=== PATIENT | female | born 1980 | race African-American/Black ===

== ENCOUNTER 2017-06-27 11:45 | Inpatient (IN) | payer OTHER ==
[2017-07-14] MEDS ORDERED: Sodium Chloride 0.9% 10 ML Syringe FLUSH PRN (00:01)
[2017-07-14] MEDS ORDERED: Lactated Ringers 1,000 ML IV SCH (00:01)
[2017-07-14] MEDS ORDERED: Lidocaine 1%/Sod Bicarbonate in NS 8.4% 1 ML Syringe IV PRN (00:01)
[2017-07-14] MEDS ORDERED: Iodine/Sodium Iodide 2% Tincture 30 ML Bottle ONE (06:19)
[2017-07-14] MEDS ORDERED: ceFAZolin 1 GM Vial ONE ×2 (06:19→06:34)
[2017-07-14] MEDS ORDERED: Morphine PF 1 MG/ML Amp ONE (06:21)
[2017-07-14] MEDS ORDERED: Midazolam 1 MG/ML 2 ML SDV ONE (06:30)
[2017-07-14] MEDS ORDERED: Propofol 200 MG/20 ML SDV ONE ×2 (06:30→09:02)
[2017-07-14] MEDS ORDERED: fentaNYL 100 MCG/2 ML SDV ONE (06:30)
[2017-07-14] MEDS ORDERED: Cyclobenzaprine 10 MG Tab PO PRN (06:36)
[2017-07-14] MEDS ORDERED: Magnesium Hydroxide 400 MG/5 ML Susp 30 ML Cup PO PRN (06:42)
[2017-07-14] MEDS ORDERED: Naloxone 0.4 MG/ML SDV IVPUSH PRN (06:42)
[2017-07-14] MEDS ORDERED: Ondansetron 4 MG/2 ML SDV IVPUSH PRN ×2 (06:42→09:40)
[2017-07-14] MEDS ORDERED: Bisacodyl 5 MG Tab PO PRN (06:42)
[2017-07-14] MEDS ORDERED: diphenhydrAMINE 50 MG/ML SDV IVPUSH PRN ×3 (06:42→20:09)
[2017-07-14] MEDS ORDERED: Sennosides 8.6 MG Tab PO PRN (06:42)
[2017-07-14] MEDS ORDERED: Morphine 2 MG/ML Syringe IVPUSH PRN (06:42)
--- NOTE | 2017-07-14 06:43 | PCM.PREANE ---
Preanesthetic Assessment - Procedure Proposed Procedure: Left TKR - Anesthesia/Transfusion/Family Hx Anesthesia History: Prior Anesthesia Reaction Type of Anesthesia Reaction: Excessive Nausea/Vomiting Family History of Anesthesia Reaction: No Transfusion History: No Prior Transfusion(s) - Review of Systems General: No Symptoms Pulmonary: No Symptoms, Other (MARTÍN with CPAP) Cardiovascular: No Symptoms Gastrointestinal: Other (GERD) Neurological: No Symptoms Other: Reports: Diabetes (insulin pump left upper arm ), Depression - Physical Assessment NPO Status Date: 07/13/17 NPO Status Time: 21:00 ASA Class: 2 Mental Status: Alert & Oriented x3 Dentition: Reports: Normal Dentition Thyro-Mental Finger Breadths: 3 Mouth Opening Finger Breadths: 3 ROM/Head Extension: Full Lungs: Clear to Auscultation, Normal Respiratory Effort Cardiovascular: Regular Rate, Regular Rhythm - Lab Values: Laboratory Last Values POC Glucose 78 mg/dL (70-105) 07/14/17 06:29 Urine HCG, Qual Negative (NEGATIVE) 07/14/17 06:14 MRSA (PCR) Negative 06/17/17 10:04 - Allergies Allergies/Adverse Reactions: Allergies Allergy/AdvReac Type Severity Reaction Status Date / Time amoxicillin Allergy Facial Verified 07/13/17 13:12 Swelling cat dander Allergy Cannot Verified 07/13/17 13:12 Remember metformin Allergy Cannot Verified 07/13/17 13:12 Remember Penicillins Allergy Cannot Verified 07/13/17 13:12 Remember shellfish derived Allergy Swelling Verified 07/13/17 13:12 metal Allergy Cannot Uncoded 07/13/17 13:12 Remember - Blood Blood Available: No Product(s) Available: None - Anesthesia Plan Pre-Op Medication Ordered: None - Acknowledgements Anesthesia Type Planned: Spinal (with duramorph) Pt an Appropriate Candidate for the Planned Anesthesia: Yes Alternatives and Risks of Anesthesia Discussed w Pt/Guardian: Yes Pt/Guardian Understands and Agrees with Anesthesia Plan: Yes PreAnesthesia Questionnaire HEENT History: Reports: Impaired Vision Other HEENT History: WEARS GLASSES Cardiovascular History: Reports: Other (See Below) Other Cardiovascular History: TACHYCARDIA Respiratory History: Reports: Asthma, Sleep Apnea Other Respiratory History: REACTIVE AIRWAY DISEASE Gastrointestinal History: Reports: GERD, Helicobacter Pylori Other Gastrointestinal History: HX OF H.PYLORI INFECTION Genitourinary History: Reports: Other (See Below) Other Genitourinary History: menorrhaiga, labial cyst Other OB/BYN History: HERPES SIMPLEX VIRUS, LABIAL CYST Musculoskeletal History: Reports: Fibromyalgia, Osteoarthritis Other Musculoskeletal History: leg pain, left ankle pain, left knee pain Neurological History: Reports: Migraines Psychiatric History: Reports: Anxiety, Depression Other Psychiatric History: INSOMNIA, fatigue Endocrine/Metabolic History: Reports: Diabetes, Type I, Obesity/BMI 30+, Other ( See Below) Other Endocrine/Metabolic History: vitamin b 12 deficiency Hematologic History: Reports: Other (See Below) Other Hematologic History: elevated CRP Immunologic History: Reports: None Oncologic (Cancer) History: Reports: None Other Dermatologic History: herpes simplex virus, skin tags, cyst excision from tailbone - Past Surgical History Cardiovascular Surgical History: Reports: None Respiratory Surgical History: Reports: None GI Surgical History: Reports: Bariatric Procedure, EGD, Other (See Below) Other GI Surgeries/Procedures: gastric bypass sleeve procedure Female Surgical History: Reports: None Male Surgical History: Reports: None Endocrine Surgical History: Reports: None Neurological Surgical History: Reports: None Musculoskeletal Surgical History: Reports: Other (See Below) Other Musculoskeletal Surgeries/Procedures:: BILATERAL CARPAL TUNNEL RELEASES, HX OF CYST EXCISION FROM TAILBONE, right foot hammertoe correction, trigger finger release on left Oncologic Surgical History: Reports: None - SUBSTANCE USE Smoking Status *Q: Never Smoker Second Hand Smoke Exposure: No Days Per Week of Alcohol Use: 0 Recreational Drug Use History: No - HOME MEDS Home Medications: Home Meds Albuterol Sulfate [Albuterol Sulfate HFA] 2 puff INH Q4H PRN 01/23/15 [History] Cyanocobalamin (Vitamin B-12) [B-12] 1,000 mcg PO DAILY PRN 01/23/15 [History] DULoxetine [Cymbalta] 60 mg PO DAILY 01/23/15 [History] Fluticasone/Salmeterol [Advair 100-50] 1 puff INH BID PRN 01/23/15 [History] Insulin Aspart [NovoLOG] 1 dose SQ ASDIRECTED PRN 01/23/15 [History] Omeprazole 40 mg PO DAILY 01/23/15 [History] medroxyPROGESTERone Acetate [Depo-Provera] 1 dose IM ASDIRECTED 01/23/15 [ History] valACYclovir HCl [Valtrex] 500 mg PO DAILY PRN 01/23/15 [History] Azelastine/Fluticasone [Dymista Nasal [place]] 1 spray NASBOTH DAILY PRN 07/13/17 [History] Calcium Carbonate [Calcium] 600 mg PO DAILY 07/13/17 [History] EPINEPHrine [Epipen] 1 dose IM ONETIME PRN 07/13/17 [History] Insulin Glargine,Hum.Rec.Anlog [Lantus Solostar] 33 units SQ BEDTIME PRN [History] LORazepam [Ativan] 1 mg PO TID PRN 07/13/17 [History] Multivitamin [Poly-Vitamin] 1 tab PO DAILY 07/13/17 [History] Temazepam 30 mg PO BEDTIME PRN 07/13/17 [History] buPROPion HCl [Wellbutrin Xl] 300 mg PO DAILY 07/13/17 [History] - CURRENT (IN HOUSE) MEDS Current Meds: Current Medications Lactated Ringer's (Ringers, Lactated) 1,000 mls @ 125 mls/hr IV ASDIRECTED MARISELA Lidocaine/Sodium Bicarbonate (Buffered Lidocaine 1% In Ns 8.4%) 0.25 ml IV ONETIME PRN PRN Reason: Prior to IV Start Sodium Chloride (Saline Flush) 10 ml FLUSH ASDIRECTED PRN PRN Reason: Keep Vein Open Discontinued Medications Bupivacaine HCl (Marcaine 0.25%) Confirm Administered Dose 30 ml .ROUTE .STK- MED ONE Stop: 07/14/17 06:20 Cefazolin Sodium (Ancef) Confirm Administered Dose 2 gm .ROUTE .STK-MED ONE Stop: 07/14/17 06:35 Cefazolin Sodium (Ancef) Confirm Administered Dose 2 gm .ROUTE .STK-MED ONE Stop: 07/14/17 06:20 Fentanyl (Sublimaze) Confirm Administered Dose 100 mcg .ROUTE .STK-MED ONE Stop: 07/14/17 06:31 Iodine (Iodine 2% Mild Tincture) Confirm Administered Dose 30 ml .ROUTE .STK- MED ONE Stop: 07/14/17 06:20 Midazolam HCl (Versed 1 Mg/Ml) Confirm Administered Dose 2 mg .ROUTE .STK-MED ONE Stop: 07/14/17 06:31 Morphine Sulfate (Duramorph Pf) Confirm Administered Dose 1 mg .ROUTE .STK-MED ONE Stop: 07/14/17 06:22 Propofol (Diprivan 20 Ml) Confirm Administered Dose 600 mg .ROUTE .STK-MED ONE Stop: 07/14/17 06:31 Tranexamic Acid (Cyklokapron) Confirm Administered Dose 1,000 mg .ROUTE .STK- MED ONE Stop: 07/14/17 06:20 Vancomycin HCl (Vancomycin) Confirm Administered Dose 1 gm .ROUTE .STK-MED ONE Stop: 07/14/17 06:20
[2017-07-14] MEDS ORDERED: Clindamycin Phosphate 900 MG in Sodium Chloride 0.9% 100 ML IV SCH (07:00)
[2017-07-14] MEDS ORDERED: Lactated Ringers 1,000 ML ONE (07:54)
[2017-07-14] MEDS: Bupivacaine 0.25% 30 ML SDV ONE ×2 (08:12→08:48)
[2017-07-14] MEDS: Clindamycin Phosphate 900 MG/6 ML AdvVial ONE ×2 (08:12→08:44)
[2017-07-14] MEDS: Morphine 8 MG, EPINEPHrine 0.3 MG, Ketorolac 30 MG, Sodium Chloride 0.9% 27.9 ML ONE ×8 (08:13→08:48)
[2017-07-14] MEDS: Vancomycin 1 GM SDV ONE ×2 (08:13→08:53)
[2017-07-14] MEDS ORDERED: Meperidine PF 50 MG/ML Syringe IVPUSH PRN (09:40)
[2017-07-14] MEDS ORDERED: fentaNYL 100 MCG/2 ML SDV IVPUSH PRN (09:40)
--- NOTE | 2017-07-14 09:42 | PCM.POSTAN ---
POST ANESTHESIA ASSESSMENT - MENTAL STATUS Mental Status: Alert, Oriented - VITAL SIGNS Pulse Rate: 83 SaO2: 100 Resp Rate: 16 Blood Pressure: 113/68 Temperature: 36.9 C - RESPIRATORY Respiratory Status: Respiratory Rate WNL, Airway Patent, O2 Saturation Stable, Supplemental Oxygen - CARDIOVASCULAR CV Status: Pulse Rate WNL, Blood Pressure Stable - GASTROINTESTINAL GI Status: No Symptoms - PAIN Pain Score: 0 - POST OP HYDRATION Hydration Status: Adequate & Stable
[2017-07-14] MEDS ORDERED: Albuterol 6.7 GM Inhaler INH PRN (11:08)
[2017-07-14] MEDS ORDERED: Azelastine/Fluticasone [Dymista Nasal Spray] NASBOTH PRN (11:08)
[2017-07-14] MEDS ORDERED: Cyanocobalamin (Vitamin B12) 1,000 MCG Tab PO PRN (11:08)
[2017-07-14] MEDS ORDERED: valACYclovir 500 MG Tab PO PRN (11:08)
[2017-07-14] MEDS ORDERED: [UNRECOGNIZED DRUG - SUPPLY] PRN (11:08)
[2017-07-14] MEDS ORDERED: Formoterol/Mometasone 100-5 MCG 8.8 GM Inhaler IH PRN (11:08)
[2017-07-14] MEDS ORDERED: LORazepam 1 MG Tab PO PRN (11:08)
[2017-07-14] MEDS ORDERED: EPINEPHrine 0.3 MG/0.3 ML Pen Autoinjector IM PRN (11:08)
--- NOTE | 2017-07-14 11:14 | CR ---
Left knee: AP and lateral views of the left knee were obtained. Comparison: No prior knee exam. Knee prosthesis is seen. Components are aligned. Soft tissue air is seen compatible with the surgical procedure. Underlying bony structures are intact. Impression: 1. Satisfactory radiographic appearance of recently placed left knee prosthesis. Diagnostic code #2
[2017-07-14] MEDS ORDERED: medroxyPROGESTERone 150 MG/ML SDV IM SCH (11:15)
[2017-07-14] MEDS: Clindamycin Phosphate 600 MG in Sodium Chloride 0.9% 100 ML IV SCH ×2 (12:51→19:53)
--- NOTE | 2017-07-14 16:29 | PCM.CONS ---
H&P History of Present Illness - General Date of Service: 07/14/17 Admit Problem/Dx: Admission Diagnosis/Problem Admission Diagnosis/Problem Osteoarthritis of knee Source of Information: Patient, Old Records, RN Notes Reviewed, Other (urgical notes) History Limitations: Reports: No Limitations - History of Present Illness Initial Comments - Free Text/Narative: Jeimy Mcgee is a 36 [address] patient of Dr. Hernandes who is post-operative day 0 of left TKR. Hospital medicine was consulted for post-operative medical care. At this time she is resting comfortably in bed. Pain is controlled. She denies any chest pain, shortness of breath, palpitations, nausea, or vomiting. She carries a history of: Tachycardia, astham, sleep apnea on CPAP, reactive airway disease , GERD, fibromyalgia, osteoarthritis, migraines, anxiety, depression, insomnia, type I DM, Obesity, vitamin B12 Deficiency, herpes symplex virus, and hx/o gastric bypass sleeve. She was never a smoker She is a full code. Her primary care provider is Fifi Weldon, Nurse Practitioner at [facility] in [place]. Left Knee Pain Score (Numeric/FACES): 2 - Related Data Allergies/Adverse Reactions: Allergies Allergy/AdvReac Type Severity Reaction Status Date / Time amoxicillin Allergy Facial Verified 07/13/17 13:12 Swelling cat dander Allergy Cannot Verified 07/13/17 13:12 Remember metformin Allergy Cannot Verified 07/13/17 13:12 Remember Penicillins Allergy Cannot Verified 07/13/17 13:12 Remember shellfish derived Allergy Swelling Verified 07/13/17 13:12 metal Allergy Cannot Uncoded 07/13/17 13:12 Remember Home Medications: Home Meds Albuterol Sulfate [Albuterol Sulfate HFA] 2 puff INH Q4H PRN 01/23/15 [History] Cyanocobalamin (Vitamin B-12) [B-12] 1,000 mcg PO DAILY PRN 01/23/15 [History] DULoxetine [Cymbalta] 60 mg PO DAILY 01/23/15 [History] Fluticasone/Salmeterol [Advair 100-50] 1 puff INH BID PRN 01/23/15 [History] Insulin Aspart [NovoLOG] 1 dose SQ ASDIRECTED PRN 01/23/15 [History] Omeprazole 40 mg PO DAILY 01/23/15 [History] medroxyPROGESTERone Acetate [Depo-Provera] 1 dose IM ASDIRECTED 01/23/15 [ History] valACYclovir HCl [Valtrex] 500 mg PO DAILY PRN 01/23/15 [History] Azelastine/Fluticasone [Dymista Nasal [place]] 1 spray NASBOTH DAILY PRN 07/13/17 [History] Calcium Carbonate [Calcium] 600 mg PO DAILY 07/13/17 [History] EPINEPHrine [Epipen] 1 dose IM ONETIME PRN 07/13/17 [History] Insulin Glargine,Hum.Rec.Anlog [Lantus Solostar] 33 units SQ BEDTIME PRN [History] LORazepam [Ativan] 1 mg PO TID PRN 07/13/17 [History] Multivitamin [Poly-Vitamin] 1 tab PO DAILY 07/13/17 [History] Temazepam 30 mg PO BEDTIME PRN 07/13/17 [History] buPROPion HCl [Wellbutrin Xl] 300 mg PO DAILY 07/13/17 [History] Past Medical History HEENT History: Reports: Impaired Vision Other HEENT History: WEARS GLASSES Cardiovascular History: Reports: Other (See Below) Other Cardiovascular History: TACHYCARDIA Respiratory History: Reports: Asthma, Sleep Apnea Other Respiratory History: REACTIVE AIRWAY DISEASE Gastrointestinal History: Reports: GERD, Helicobacter Pylori Other Gastrointestinal History: HX OF H.PYLORI INFECTION Genitourinary History: Reports: Other (See Below) Other Genitourinary History: menorrhaiga, labial cyst Other OB/BYN History: HERPES SIMPLEX VIRUS, LABIAL CYST Musculoskeletal History: Reports: Fibromyalgia, Osteoarthritis Other Musculoskeletal History: leg pain, left ankle pain, left knee pain Neurological History: Reports: Migraines Psychiatric History: Reports: Anxiety, Depression Other Psychiatric History: INSOMNIA, fatigue Endocrine/Metabolic History: Reports: Diabetes, Type I, Obesity/BMI 30+, Other ( See Below) Other Endocrine/Metabolic History: vitamin b 12 deficiency Hematologic History: Reports: Other (See Below) Other Hematologic History: elevated CRP Immunologic History: Reports: None Oncologic (Cancer) History: Reports: None Other Dermatologic History: herpes simplex virus, skin tags, cyst excision from tailbone - Infectious Disease History Infectious Disease History: Reports: Herpes - Past Surgical History HEENT Surgical History: Reports: None Cardiovascular Surgical History: Reports: None Respiratory Surgical History: Reports: None GI Surgical History: Reports: Bariatric Procedure, EGD, Other (See Below) Other GI Surgeries/Procedures: gastric bypass sleeve procedure Female Surgical History: Reports: None Endocrine Surgical History: Reports: None Neurological Surgical History: Reports: None Musculoskeletal Surgical History: Reports: Other (See Below) Other Musculoskeletal Surgeries/Procedures:: BILATERAL CARPAL TUNNEL RELEASES, HX OF CYST EXCISION FROM TAILBONE, right foot hammertoe correction, trigger finger release on left Oncologic Surgical History: Reports: None Social & Family History - Tobacco Use Smoking Status *Q: Never Smoker Second Hand Smoke Exposure: No - Caffeine Use Caffeine Use: Reports: Coffee, Tea - Alcohol Use Days Per Week of Alcohol Use: 0 - Recreational Drug Use Recreational Drug Use: No Drug Use in Last 12 Months: No H&P Review of Systems - Review of Systems: Review Of Systems: See Below General: Reports: No Symptoms. Denies: Fever, Chills, Malaise, Weakness, Fatigue HEENT: Reports: No Symptoms. Denies: Ear Pain, Eye Pain, Headaches, Sore Throat , Visual Changes Pulmonary: Reports: No Symptoms. Denies: Shortness of Breath, Wheezing, Pleuritic Chest Pain, Cough, Sputum Cardiovascular: Reports: No Symptoms. Denies: Chest Pain, Palpitations, Dyspnea on Exertion, Edema, Lightheadedness Gastrointestinal: Reports: No Symptoms. Denies: Abdominal Pain, Constipation, Diarrhea, Nausea, Vomiting Genitourinary: Reports: No Symptoms. Denies: Dysuria, Frequency, Burning, Pain , Urgency Musculoskeletal: Reports: Joint Pain (left knee pain - very mild ) Skin: Reports: No Symptoms Psychiatric: Reports: No Symptoms Neurological: Reports: Numbness (legs ), Tingling (legs ). Denies: Confusion, Dizziness, Headache, Paresthesia, Pre-Existing Deficit, Syncope, Tremors, Trouble Speaking, Weakness Hematologic/Lymphatic: Reports: No Symptoms Immunologic: Reports: No Symptoms Exam - Exam Exam: See Below - Vital Signs Vital Signs: Last Vital Signs Temp 97.5 F 07/14/17 10:45 Pulse 80 07/14/17 14:36 Resp 16 07/14/17 14:36 BP 126/78 07/14/17 13:00 Pulse Ox 100 07/14/17 14:39 Weight: 211 lb - Exam Quality Assessment: Urinary Catheter, DVT Prophylaxis General: Alert, Oriented, Cooperative HEENT: Conjunctiva Clear, EACs Clear, EOMI, Hearing Intact, Mucosa Moist & [place] , Nares Patent, Normal Nasal Septum, Posterior Pharynx Clear, PERRLA Neck: Supple, Trachea Midline. No: JVD, Thyromegaly Lungs: Clear to Auscultation, Normal Respiratory Effort Cardiovascular: Regular Rate, Regular Rhythm GI/Abdominal Exam: Normal Bowel Sounds, Soft, Non-Tender, No Organomegaly, No Distention, No Abnormal Bruit, No Mass, Pelvis Stable (Female) Exam: Deferred Rectal (Female) Exam: Deferred Back Exam: Normal Inspection, Full Range of Motion Extremities: No Pedal Edema, Normal Capillary Refill, Other (CHARIS bandage in place on left leg. Bandage is dry and intact. Polar care in place. ) Peripheral Pulses: 2+: Radial (L), Radial (R), Posterior Tibial (L), Posterior Tibial (R), Dorsalis Pedis (L), Dorsalis Pedis (R) Skin: Warm, Dry, Intact Neurological: Cranial Nerves Intact (grossly) Neuro Extensive - Mental Status: Alert, Oriented x3, Normal Mood/Affect, Normal Cognition Neuro Extensive - Motor, Sensory, Reflexes: CN II-XII Intact (grossly) Psychiatric: Alert, Normal Affect, Normal Mood - Patient Data Lab Results Last 24 hrs: Laboratory Results - last 24 hr 07/14/17 07/14/17 07/14/17 Range/Units 06:14 06:29 09:36 POC Glucose 78 74 (70-105) mg/dL Urine HCG, Qual Negative (NEGATIVE) Consult PN Assessment/Plan POD#: 0 Procedures: Procedures ASSAY OF MAGNESIUM (06/01/15) ASSAY OF PHOSPHORUS (06/01/15) ASSAY OF TROPONIN QUANT (06/01/15) CHEST X-RAY 1 VIEW FRONTAL (06/01/15) COMPLETE CBC W/AUTO DIFF WBC (06/01/15) COMPREHEN METABOLIC PANEL (06/01/15) ELECTROCARDIOGRAM TRACING (06/01/15) EMERGENCY DEPT VISIT (06/01/15) GLUCOSE BLOOD TEST (01/24/15) REPAIR OF HAMMERTOE (01/24/15) ROUTINE VENIPUNCTURE (06/01/15) URINE TEST (01/24/15) (1) S/P total knee replacement SNOMED Code(s): 9293049846721, 4211923344912 Code(s): Z96.659 - PRESENCE OF UNSPECIFIED ARTIFICIAL KNEE JOINT Priority: High Current Visit: Yes Qualifiers: Laterality: left Qualified Code(s): Z96.652 - Presence of left artificial knee joint (2) Osteoarthritis SNOMED Code(s): 505528630 Code(s): M19.90 - UNSPECIFIED OSTEOARTHRITIS, UNSPECIFIED SITE Priority: High Current Visit: Yes Qualifiers: Osteoarthritis location: knee Osteoarthritis type: primary Laterality: bilateral Qualified Code(s): M17.0 - Bilateral primary osteoarthritis of knee (3) Type I diabetes mellitus SNOMED Code(s): 79810152 Code(s): E10.9 - TYPE 1 DIABETES MELLITUS WITHOUT COMPLICATIONS Priority: High Current Visit: Yes Qualifiers: Diabetes mellitus complication status: without complication Qualified Code( s): E10.9 - Type 1 diabetes mellitus without complications (4) MARTÍN (obstructive sleep apnea) SNOMED Code(s): 85374649 Code(s): G47.33 - OBSTRUCTIVE SLEEP APNEA (ADULT) (PEDIATRIC) Priority: Medium Current Visit: Yes (5) Asthma SNOMED Code(s): 967721426 Code(s): J45.909 - UNSPECIFIED ASTHMA, UNCOMPLICATED Priority: Medium Current Visit: No Qualifiers: Asthma severity: unspecified severity Asthma persistence: unspecified Asthma complication type: unspecified Qualified Code(s): J45.909 - Unspecified asthma, uncomplicated (6) Tachycardia SNOMED Code(s): 9557118 Code(s): R00.0 - TACHYCARDIA, UNSPECIFIED Priority: Medium Current Visit : No (7) Fibromyalgia SNOMED Code(s): 014459527 Code(s): M79.7 - FIBROMYALGIA Priority: Low Current Visit: No (8) Anxiety and depression SNOMED Code(s): 681293077 Code(s): F41.8 - OTHER SPECIFIED ANXIETY DISORDERS Priority: Low Current Visit: No (9) History of gastric bypass SNOMED Code(s): 290717254 Code(s): Z98.84 - BARIATRIC SURGERY STATUS Priority: Low Current Visit: Yes (10) B12 deficiency SNOMED Code(s): 685764372 Code(s): E53.8 - DEFICIENCY OF OTHER SPECIFIED B GROUP VITAMINS Priority: Low Current Visit: No (11) Insomnia SNOMED Code(s): 973040441 Code(s): G47.00 - INSOMNIA, UNSPECIFIED Priority: Low Current Visit: No Qualifiers: Insomnia type: unspecified Qualified Code(s): G47.00 - Insomnia, unspecified (12) Gastroesophageal reflux disease SNOMED Code(s): 817404427 Code(s): K21.9 - GASTRO-ESOPHAGEAL REFLUX DISEASE WITHOUT ESOPHAGITIS Priority: Low Current Visit: No Qualifiers: Esophagitis presence: esophagitis presence not specified Qualified Code(s) : K21.9 - Gastro-esophageal reflux disease without esophagitis (13) Hypertension SNOMED Code(s): 41443630 Code(s): I10 - ESSENTIAL (PRIMARY) HYPERTENSION Priority: Low Current Visit: No Qualifiers: Hypertension type: essential hypertension Qualified Code(s): I10 - Essential (primary) hypertension Problem List Initiated/Reviewed/Updated: Yes Plan: I/P: Acute: S/P left total knee replacement - post-operative day 0 -DVT prophylaxis and pain management per primary care team -PT/OT -IS/RT -Monitor oxygen saturation -Titrate oxygen as needed -Vital signs stable -Monitor post-operative labs Osteoarthritis of bilateral knees -Pain management per primary care team Chronic: MARTÍN - CPAP GERD Type I DM - Blood sugar checks as ordered; on insulin pump Tacycardia - stable reactive airway disease - stable asthma herpes simplex virus fibromyalgia - stable migraines anxiety - stable depression - stable insomnia obesity vitamin B 12 deficiency Hx/o gastric bypass sleeve Plan: SW/CM for discharge planning GI prophylaxis Home medications as indicated Other orders as listed above Routine AM labs She is a full code. Her PCP is Fifi Weldon, Nurse practitioner at in [place]. Thank you for allowing us to participate in the care of this patient!! Requesting Provider: Dr. Hernandes Date Consult Requested: 07/14/17 Reason for Consult: Post-operative medical managment Patient History Reviewed: Yes Admission H&P Reviewed: Yes
[2017-07-14] MEDS ORDERED: 50% Dextrose in Water 50 ML Syringe IVPUSH PRN (18:59)
[2017-07-14] MEDS: Docusate Sodium 100 MG Cap PO SCH (20:29)
[2017-07-14] MEDS ORDERED: Famotidine 20 MG Tab PO SCH (21:00)
[2017-07-14] MEDS ORDERED: Insulin Detemir 100 Units/ML 3 ML Pen SUBCUT PRN (21:00)
[2017-07-14] MEDS ORDERED: Temazepam 30 MG Cap PO PRN (21:00)
[2017-07-15] MEDS: Clindamycin Phosphate 600 MG in Sodium Chloride 0.9% 100 ML IV SCH ×3 (01:08→12:54)
[2017-07-15] MEDS: Acetaminophen/oxyCODONE 325-5 MG Tab PO PRN ×3 (01:15→14:21)
[2017-07-15] MEDS: Ketorolac 15 MG/ML SDV IVPUSH PRN ×2 (04:14→11:14)
[2017-07-15] MEDS ORDERED: Pantoprazole 40 MG Tab.CR PO SCH (07:00)
--- NOTE | 2017-07-15 08:24 | PCM.CONSN ---
- General Info Date of Service: 07/15/17 Admission Dx/Problem (Free Text): Admission Diagnosis/Problem Admission Diagnosis/Problem Osteoarthritis of knee POD #[address] Hernandes. Doing well. Pain controlled, no nausea. Working with PT/OT. Functional Status: Reports: Pain Controlled, Tolerating Diet, Ambulating, Urinating, Incentive Spirometry. Denies: New Symptoms - Review of Systems General: Reports: No Symptoms HEENT: Reports: No Symptoms Pulmonary: Reports: No Symptoms Cardiovascular: Reports: No Symptoms Gastrointestinal: Reports: No Symptoms Genitourinary: Reports: No Symptoms Musculoskeletal: Reports: Leg Pain Skin: Reports: No Symptoms Neurological: Reports: No Symptoms Psychiatric: Reports: No Symptoms - Patient Data Vitals - Most Recent: Last Vital Signs Temp 98.2 F 07/15/17 03:13 Pulse 86 07/15/17 03:13 Resp 16 07/15/17 03:13 BP 117/75 07/15/17 03:13 Pulse Ox 97 07/15/17 03:13 Weight - Most Recent: 207 lb 14.4 oz I&O - Last 24 Hours: Intake & Output 07/14/17 07/15/17 07/15/17 22:59 06:59 14:59 Intake Total 1160 650 Output Total 350 Balance 810 650 Lab Results Last 24 Hours: Laboratory Results - last 24 hr 07/14/17 07/15/17 07/15/17 Range/Units 09:36 06:12 06:12 WBC 5.98 (3.98-10.04) K/mm3 RBC 4.21 (3.98-5.22) M/mm3 Hgb 11.9 (11.2-15.7) gm/L Hct 35.9 (34.1-44.9) % MCV 85.3 (79.4-94.8) fl MCH 28.3 (25.6-32.2) pg MCHC 33.1 (32.2-35.5) g/dl RDW Std Deviation 37.0 (36.4-46.3) fL Plt Count 187 (182-369) K/mm3 MPV 8.8 L (9.4-12.3) fl Sodium 143 (136-145) mEq/L Potassium 4.2 (3.5-5.1) mEq/L Chloride 108 H (98-107) mEq/L Carbon Dioxide 27 (21-32) mEq/L Anion Gap 12.2 (5-15) BUN 10 (7-18) mg/dL Creatinine 0.9 (0.55-1.02) mg/dL Est Cr Clr Drug Dosing 80.12 mL/min Estimated GFR (MDRD) > 60 (>60) mL/min BUN/Creatinine Ratio 11.1 L (14-18) Glucose 54 L (74-106) mg/dL POC Glucose 74 (70-105) mg/dL Calcium 8.3 L (8.5-10.1) mg/dL Total Bilirubin 0.6 (0.2-1.0) mg/dL AST 18 (15-37) U/L ALT 33 (14-59) U/L Alkaline Phosphatase 45 L (46-116) U/L Total Protein 6.3 L (6.4-8.2) g/dl Albumin 3.0 L (3.4-5.0) g/dl Globulin 3.3 gm/dL Albumin/Globulin Ratio 0.9 L (1-2) 07/15/17 07/15/17 Range/Units 06:23 07:30 WBC (3.98-10.04) K/mm3 RBC (3.98-5.22) M/mm3 Hgb (11.2-15.7) gm/L Hct (34.1-44.9) % MCV (79.4-94.8) fl MCH (25.6-32.2) pg MCHC (32.2-35.5) g/dl RDW Std Deviation (36.4-46.3) fL Plt Count (182-369) K/mm3 MPV (9.4-12.3) fl Sodium (136-145) mEq/L Potassium (3.5-5.1) mEq/L Chloride (98-107) mEq/L Carbon Dioxide (21-32) mEq/L Anion Gap (5-15) BUN (7-18) mg/dL Creatinine (0.55-1.02) mg/dL Est Cr Clr Drug Dosing mL/min Estimated GFR (MDRD) (>60) mL/min BUN/Creatinine Ratio (14-18) Glucose (74-106) mg/dL POC Glucose 47 L 112 H (70-105) mg/dL Calcium (8.5-10.1) mg/dL Total Bilirubin (0.2-1.0) mg/dL AST (15-37) U/L ALT (14-59) U/L Alkaline Phosphatase (46-116) U/L Total Protein (6.4-8.2) g/dl Albumin (3.4-5.0) g/dl Globulin gm/dL Albumin/Globulin Ratio (1-2) Med Orders - Current: Current Medications Albuterol (Proventil Hfa) 0 gm INH Q4H PRN PRN Reason: Shortness of Breath Bisacodyl (Dulcolax) 5 mg PO DAILY PRN PRN Reason: Constipation Bupropion HCl (Wellbutrin Xl) 300 mg PO DAILY [facility] [place] Calcium Carbonate/Glycine (Calcium Carbonate) 600 mg PO DAILY [facility] Cyanocobalamin (Vitamin B12) 1,000 mcg PO DAILY PRN PRN Reason: as directed Cyclobenzaprine HCl (Flexeril) 10 mg PO TID PRN PRN Reason: Spasms Dextrose/Water (Dextrose 50% In Water) 50 ml IVPUSH ASDIRECTED PRN PRN Reason: Hypoglycemia Diphenhydramine HCl (Benadryl) 25 mg IVPUSH Q4H PRN PRN Reason: Itching Last Admin: 07/14/17 20:28 Dose: 25 mg Docusate Sodium (Colace) 100 mg PO BID [facility] [place] Last Admin: 07/14/17 20:29 Dose: 100 mg Duloxetine HCl (Cymbalta) 60 mg PO DAILY [facility] [place] Epinephrine HCl (Epipen) 0.3 mg IM ONETIME PRN PRN Reason: anaphylaxis Clindamycin Phosphate 600 mg/ (Sodium Chloride) 104 mls @ 100 mls/hr IV Q6H [facility] [place] Stop: 07/15/17 13:31 Last Admin: 07/15/17 06:37 Dose: 100 mls/hr Insulin Detemir (Levemir) 16 unit SUBCUT BID PRN PRN Reason: if insulin pump fails Ketorolac Tromethamine (Toradol) 15 mg IVPUSH Q6H PRN PRN Reason: Pain Last Admin: 07/15/17 04:14 Dose: 15 mg Lorazepam (Ativan) 1 mg PO TID PRN PRN Reason: Anxiety Magnesium Hydroxide (Milk Of Magnesia) 30 ml PO BID PRN PRN Reason: Constipation Mometasone Furoate/Formoterol Fumar (Dulera 100-5 Mcg) 2 puff IH BID PRN PRN Reason: Shortness of Breath Morphine Sulfate (Morphine) 2 mg IVPUSH Q2H PRN PRN Reason: Breakthrough Pain Multivitamins (Thera) 1 each PO DAILY [facility] [place] Naloxone HCl (Narcan) 0.1 mg IVPUSH Q5M PRN PRN Reason: Oversedation Ondansetron HCl (Zofran) 4 mg IVPUSH Q6H PRN PRN Reason: Nausea/Vomiting Last Admin: 07/14/17 14:30 Dose: 4 mg Oxycodone/Acetaminophen (Percocet 325-5 Mg) 1 - 2 tab PO Q4H PRN PRN Reason: Pain Last Admin: 07/15/17 01:15 Dose: 2 tab Pantoprazole Sodium (Protonix) 40 mg PO DAILY@0700 [facility] [place] Last Admin: 07/15/17 06:38 Dose: 40 mg Azelastine/Fluticasone [Dymista Nasal [place]] 0 each NASBOTH DAILY PRN PRN Reason: as directed Patient's Own (Insulin Pump Omnipod) 0 each .XX ASDIRECTED PRN PRN Reason: Hyperglycemia Rivaroxaban (Xarelto) 10 mg PO DAILY [facility] [place] Senna (Senna) 8.6 mg PO BID PRN PRN Reason: Constipation Sodium Chloride (Saline Flush) 10 ml FLUSH ASDIRECTED PRN PRN Reason: Keep Vein Open Temazepam (Restoril) 30 mg PO BEDTIME PRN PRN Reason: Insomnia Discontinued Medications Aspirin (Ecotrin) 325 mg PO BID [facility] [place] Bupivacaine HCl (Marcaine 0.25%) Confirm Administered Dose 30 ml .ROUTE .STK- MED ONE Stop: 07/14/17 06:20 Last Admin: 07/14/17 08:48 Dose: 30 ml Cefazolin Sodium (Ancef) Confirm Administered Dose 2 gm .ROUTE .STK-MED ONE Stop: 07/14/17 06:35 Cefazolin Sodium (Ancef) Confirm Administered Dose 2 gm .ROUTE .STK-MED ONE Stop: 07/14/17 06:20 Clindamycin Phosphate (Cleocin) Confirm Administered Dose 900 mg .ROUTE .STK- MED ONE Stop: 07/14/17 06:33 Last Admin: 07/14/17 08:44 Dose: 900 mg Morphine Sulfate 8 mg/Epinephrine HCl 0.3 mg/Ketorolac Tromethamine 30 mg/ Sodium Chloride 27.9 ml 0 mg .XX ONETIME ONE Stop: 07/14/17 06:37 Last Admin: 07/14/17 08:48 Dose: 38.3 mg Diphenhydramine HCl (Benadryl) 25 mg IVPUSH Q4H PRN PRN Reason: Nausea Diphenhydramine HCl (Benadryl) 25 mg IVPUSH Q6H PRN PRN Reason: Pruritis Stop: 07/14/17 18:00 Famotidine (Pepcid) 20 mg PO Q12H [facility] Fentanyl (Sublimaze) Confirm Administered Dose 100 mcg .ROUTE .STK-MED ONE Stop: 07/14/17 06:31 Fentanyl (Sublimaze) 50 mcg IVPUSH Q5M PRN PRN Reason: Pain Stop: 07/14/17 18:00 Lactated Ringer's (Ringers, Lactated) 1,000 mls @ 125 mls/hr IV ASDIRECTED [facility] [place] Last Admin: 07/14/17 07:05 Dose: 125 mls/hr Clindamycin Phosphate 900 mg/ (Sodium Chloride) 106 mls @ 100 mls/hr IV ONETIME [facility] Stop: 07/14/17 11:30 Last Admin: 07/14/17 07:15 Dose: 100 mls/hr Lactated Ringer's (Ringers, Lactated) Confirm Administered Dose 1,000 mls @ as directed .ROUTE .STK-MED ONE Stop: 07/14/17 07:55 Iodine (Iodine 2% Mild Tincture) Confirm Administered Dose 30 ml .ROUTE .STK- MED ONE Stop: 07/14/17 06:20 Lidocaine/Sodium Bicarbonate (Buffered Lidocaine 1% In Ns 8.4%) 0.25 ml IV ONETIME PRN PRN Reason: Prior to IV Start Last Admin: 07/14/17 07:05 Dose: 0.25 ml Medroxyprogesterone Acetate (Depo-Provera) mg IM ASDIRECTED [facility] [place] [place] Meperidine HCl (Demerol) 12.5 mg IVPUSH ONETIME PRN PRN Reason: Shivering Stop: 07/14/17 18:00 Midazolam HCl (Versed 1 Mg/Ml) Confirm Administered Dose 2 mg .ROUTE .STK-MED ONE Stop: 07/14/17 06:31 Morphine Sulfate (Duramorph Pf) Confirm Administered Dose 1 mg .ROUTE .STK-MED ONE Stop: 07/14/17 06:22 Ondansetron HCl (Zofran) 4 mg IVPUSH ONETIME PRN PRN Reason: Nausea/Vomiting Stop: 07/14/17 18:00 Propofol (Diprivan 20 Ml) Confirm Administered Dose 600 mg .ROUTE .STK-MED ONE Stop: 07/14/17 06:31 Propofol (Diprivan 20 Ml) Confirm Administered Dose 200 mg .ROUTE .STK-MED ONE Stop: 07/14/17 09:03 Tranexamic Acid (Cyklokapron) Confirm Administered Dose 1,000 mg .ROUTE .STK- MED ONE Stop: 07/14/17 06:20 Last Admin: 07/14/17 08:54 Dose: 1,000 mg Valacyclovir HCl (Valtrex) 500 mg PO DAILY PRN PRN Reason: cold sores Vancomycin HCl (Vancomycin) Confirm Administered Dose 1 gm .ROUTE .STK-MED ONE Stop: 07/14/17 06:20 Last Admin: 07/14/17 08:53 Dose: 1 gm - Exam Quality Assessment: DVT Prophylaxis General: Alert, Oriented, Cooperative, No Acute Distress HEENT: Pupils Equal, EOMI, Mucous Membr. Moist/[place] Neck: Supple Lungs: Clear to Auscultation, Normal Respiratory Effort Cardiovascular: Regular Rate, Regular Rhythm GI/Abdominal Exam: Normal Bowel Sounds, Soft, Non-Tender (Female) Exam: Deferred Extremities: Other (angeli and ice to knee; CMS + and = distally) Peripheral Pulses: 2+: Dorsalis Pedis (L), Dorsalis Pedis (R) Wound/Incisions: Dressing Dry and Intact Neurological: No New Focal Deficit Psy/Mental Status: Alert, Normal Affect, Normal Mood Consult PN Assessment/Plan POD#: 1 Procedures: Procedures ASSAY OF MAGNESIUM (06/01/15) ASSAY OF PHOSPHORUS (06/01/15) ASSAY OF TROPONIN QUANT (06/01/15) CHEST X-RAY 1 VIEW FRONTAL (06/01/15) COMPLETE CBC W/AUTO DIFF WBC (06/01/15) COMPREHEN METABOLIC PANEL (06/01/15) ELECTROCARDIOGRAM TRACING (06/01/15) EMERGENCY DEPT VISIT (06/01/15) GLUCOSE BLOOD TEST (01/24/15) REPAIR OF HAMMERTOE (01/24/15) ROUTINE VENIPUNCTURE (06/01/15) URINE TEST (01/24/15) (1) S/P total knee replacement SNOMED Code(s): 0921777947527, 5616551376117 Code(s): Z96.659 - PRESENCE OF UNSPECIFIED ARTIFICIAL KNEE JOINT Priority: High Current Visit: Yes Qualifiers: Laterality: left Qualified Code(s): Z96.652 - Presence of left artificial knee joint (2) Osteoarthritis SNOMED Code(s): 732979980 Code(s): M19.90 - UNSPECIFIED OSTEOARTHRITIS, UNSPECIFIED SITE Priority: High Current Visit: Yes Qualifiers: Osteoarthritis location: knee Osteoarthritis type: primary Laterality: bilateral Qualified Code(s): M17.0 - Bilateral primary osteoarthritis of knee (3) Type I diabetes mellitus SNOMED Code(s): 94776234 Code(s): E10.9 - TYPE 1 DIABETES MELLITUS WITHOUT COMPLICATIONS Priority: High Current Visit: Yes Qualifiers: Diabetes mellitus complication status: without complication Qualified Code( s): E10.9 - Type 1 diabetes mellitus without complications (4) History of gastric bypass SNOMED Code(s): 096452334 Code(s): Z98.84 - BARIATRIC SURGERY STATUS Priority: Medium Current Visit : Yes (5) MARTÍN (obstructive sleep apnea) SNOMED Code(s): 80791824 Code(s): G47.33 - OBSTRUCTIVE SLEEP APNEA (ADULT) (PEDIATRIC) Priority: Medium Current Visit: Yes (6) Anxiety and depression SNOMED Code(s): 846888403 Code(s): F41.8 - OTHER SPECIFIED ANXIETY DISORDERS Priority: Low Current Visit: No (7) Asthma SNOMED Code(s): 636400356 Code(s): J45.909 - UNSPECIFIED ASTHMA, UNCOMPLICATED Priority: Medium Current Visit: No Qualifiers: Asthma severity: unspecified severity Asthma persistence: unspecified Asthma complication type: unspecified Qualified Code(s): J45.909 - Unspecified asthma, uncomplicated (8) B12 deficiency SNOMED Code(s): 174370462 Code(s): E53.8 - DEFICIENCY OF OTHER SPECIFIED B GROUP VITAMINS Priority: Low Current Visit: No (9) Fibromyalgia SNOMED Code(s): 606754156 Code(s): M79.7 - FIBROMYALGIA Priority: Low Current Visit: No (10) Gastroesophageal reflux disease SNOMED Code(s): 395465000 Code(s): K21.9 - GASTRO-ESOPHAGEAL REFLUX DISEASE WITHOUT ESOPHAGITIS Priority: Low Current Visit: No Qualifiers: Esophagitis presence: esophagitis presence not specified Qualified Code(s) : K21.9 - Gastro-esophageal reflux disease without esophagitis (11) Hypertension SNOMED Code(s): 57178247 Code(s): I10 - ESSENTIAL (PRIMARY) HYPERTENSION Priority: Low Current Visit: No Qualifiers: Hypertension type: essential hypertension Qualified Code(s): I10 - Essential (primary) hypertension (12) Insomnia SNOMED Code(s): 896734551 Code(s): G47.00 - INSOMNIA, UNSPECIFIED Priority: Low Current Visit: No Qualifiers: Insomnia type: unspecified Qualified Code(s): G47.00 - Insomnia, unspecified (13) Tachycardia SNOMED Code(s): 0192332 Code(s): R00.0 - TACHYCARDIA, UNSPECIFIED Priority: Medium Current Visit : No Problem List Initiated/Reviewed/Updated: Yes Plan: I/P: Acute: S/P left total knee arthroplasty - post-operative day 1 -DVT prophylaxis and pain management per primary care team -PT/OT -IS/RT -Vital signs stable -Hgb 11.9; other labs stable Osteoarthritis of left hip -Pain management per primary care team Type 1 DM with insulin pump -AC/HS accuchecks -Cont with pump Other chronic conditions: Cont home meds HTN Asthma Fibromyalgia GERD MARTÍN Anxiety/Depression Hx of gastric bypass surger B12 def. Hx malnutrition as child Plan: SW/CM for discharge planning--OK for DC home today from Hospitalist standpoint. GI prophylaxis He is a full code. His PCP is ALEX Abdalla with [facility].
--- NOTE | 2017-07-15 08:30 | PCM48HPAN ---
Post Anesthesia Note - EVALUATION WITHIN 48HRS OF ANESTHETIC Vital Signs in Normal Range: Yes Patient Participated in Evaluation: Yes Respiratory Function Stable: Yes Airway Patent: Yes Cardiovascular Function Stable: Yes Hydration Status Stable: Yes Pain Control Satisfactory: Yes Nausea and Vomiting Control Satisfactory: Yes Mental Status Recovered: Yes - COMMENTS/OBSERVATIONS Free Text/Narrative:: Patient has been up walking around. No complaints of headache, weakness/numbness /tingling in her legs. No further questions noted.
[2017-07-15] MEDS: Docusate Sodium 100 MG Cap PO SCH (08:49)
[2017-07-15] MEDS ORDERED: buPROPion 150 MG Tab.ER PO SCH (09:00)
[2017-07-15] MEDS ORDERED: DULoxetine 30 MG Cap PO SCH (09:00)
[2017-07-15] MEDS ORDERED: Rivaroxaban 10 MG Tab PO SCH (09:00)
[2017-07-15] MEDS ORDERED: Calcium Carbonate 600 MG Tab PO SCH (09:00)
[2017-07-15] MEDS ORDERED: Multivitamins,Therapeutic Tab PO SCH (09:00)
[2017-07-15] MEDS ORDERED: Aspirin 325 MG Tab.EC PO SCH (09:00)
[2017-07-15 14:29] VITALS: BP 126/76
--- NOTE | 2017-07-15 16:06 | PCM.SURGPN ---
- General Info Date of Service: 07/15/17 POD#: 1 Functional Status: Reports: Pain Controlled, Tolerating Diet, Ambulating, Urinating, Incentive Spirometry (The pt has progressed with therapies.) - Patient Data Vitals - Most Recent: Last Vital Signs Temp 98.4 F 07/15/17 14:27 Pulse 89 07/15/17 14:27 Resp 18 07/15/17 14:27 BP 126/76 07/15/17 14:27 Pulse Ox 99 07/15/17 14:27 Weight - Most Recent: 207 lb 14.4 oz I&O - Last 24 Hours: Intake & Output 07/15/17 07/15/17 07/15/17 06:59 14:59 22:59 Intake Total 650 0 0 Balance 650 0 0 Lab Results Last 24 Hrs: Laboratory Results - last 24 hr 07/15/17 07/15/17 07/15/17 Range/Units 06:12 06:12 06:23 WBC 5.98 (3.98-10.04) K/mm3 RBC 4.21 (3.98-5.22) M/mm3 Hgb 11.9 (11.2-15.7) gm/L Hct 35.9 (34.1-44.9) % MCV 85.3 (79.4-94.8) fl MCH 28.3 (25.6-32.2) pg MCHC 33.1 (32.2-35.5) g/dl RDW Std Deviation 37.0 (36.4-46.3) fL Plt Count 187 (182-369) K/mm3 MPV 8.8 L (9.4-12.3) fl Sodium 143 (136-145) mEq/L Potassium 4.2 (3.5-5.1) mEq/L Chloride 108 H (98-107) mEq/L Carbon Dioxide 27 (21-32) mEq/L Anion Gap 12.2 (5-15) BUN 10 (7-18) mg/dL Creatinine 0.9 (0.55-1.02) mg/dL Est Cr Clr Drug Dosing 80.12 mL/min Estimated GFR (MDRD) > 60 (>60) mL/min BUN/Creatinine Ratio 11.1 L (14-18) Glucose 54 L (74-106) mg/dL POC Glucose 47 L (70-105) mg/dL Calcium 8.3 L (8.5-10.1) mg/dL Total Bilirubin 0.6 (0.2-1.0) mg/dL AST 18 (15-37) U/L ALT 33 (14-59) U/L Alkaline Phosphatase 45 L (46-116) U/L Total Protein 6.3 L (6.4-8.2) g/dl Albumin 3.0 L (3.4-5.0) g/dl Globulin 3.3 gm/dL Albumin/Globulin Ratio 0.9 L (1-2) 07/15/17 Range/Units 07:30 WBC (3.98-10.04) K/mm3 RBC (3.98-5.22) M/mm3 Hgb (11.2-15.7) gm/L Hct (34.1-44.9) % MCV (79.4-94.8) fl MCH (25.6-32.2) pg MCHC (32.2-35.5) g/dl RDW Std Deviation (36.4-46.3) fL Plt Count (182-369) K/mm3 MPV (9.4-12.3) fl Sodium (136-145) mEq/L Potassium (3.5-5.1) mEq/L Chloride (98-107) mEq/L Carbon Dioxide (21-32) mEq/L Anion Gap (5-15) BUN (7-18) mg/dL Creatinine (0.55-1.02) mg/dL Est Cr Clr Drug Dosing mL/min Estimated GFR (MDRD) (>60) mL/min BUN/Creatinine Ratio (14-18) Glucose (74-106) mg/dL POC Glucose 112 H (70-105) mg/dL Calcium (8.5-10.1) mg/dL Total Bilirubin (0.2-1.0) mg/dL AST (15-37) U/L ALT (14-59) U/L Alkaline Phosphatase (46-116) U/L Total Protein (6.4-8.2) g/dl Albumin (3.4-5.0) g/dl Globulin gm/dL Albumin/Globulin Ratio (1-2) Med Orders - Current: Current Medications Albuterol (Proventil Hfa) 0 gm INH Q4H PRN PRN Reason: Shortness of Breath Bisacodyl (Dulcolax) 5 mg PO DAILY PRN PRN Reason: Constipation Bupropion HCl (Wellbutrin Xl) 300 mg PO DAILY [facility] Last Admin: 07/15/17 08:49 Dose: 300 mg Calcium Carbonate/Glycine (Calcium Carbonate) 600 mg PO DAILY [facility] Last Admin: 07/15/17 08:49 Dose: 600 mg Cyanocobalamin (Vitamin B12) 1,000 mcg PO DAILY PRN PRN Reason: as directed Cyclobenzaprine HCl (Flexeril) 10 mg PO TID PRN PRN Reason: Spasms Last Admin: 07/15/17 11:28 Dose: 10 mg Dextrose/Water (Dextrose 50% In Water) 50 ml IVPUSH ASDIRECTED PRN PRN Reason: Hypoglycemia Diphenhydramine HCl (Benadryl) 25 mg IVPUSH Q4H PRN PRN Reason: Itching Last Admin: 07/14/17 20:28 Dose: 25 mg Docusate Sodium (Colace) 100 mg PO BID [facility] Last Admin: 07/15/17 08:49 Dose: 100 mg Duloxetine HCl (Cymbalta) 60 mg PO DAILY [facility] Last Admin: 07/15/17 08:48 Dose: 60 mg Epinephrine HCl (Epipen) 0.3 mg IM ONETIME PRN PRN Reason: anaphylaxis Insulin Detemir (Levemir) 16 unit SUBCUT BID PRN PRN Reason: if insulin pump fails Ketorolac Tromethamine (Toradol) 15 mg IVPUSH Q6H PRN PRN Reason: Pain Last Admin: 07/15/17 11:14 Dose: 15 mg Lorazepam (Ativan) 1 mg PO TID PRN PRN Reason: Anxiety Magnesium Hydroxide (Milk Of Magnesia) 30 ml PO BID PRN PRN Reason: Constipation Mometasone Furoate/Formoterol Fumar (Dulera 100-5 Mcg) 2 puff IH BID PRN PRN Reason: Shortness of Breath Morphine Sulfate (Morphine) 2 mg IVPUSH Q2H PRN PRN Reason: Breakthrough Pain Multivitamins (Thera) 1 each PO DAILY [facility] Last Admin: 07/15/17 08:49 Dose: 1 each Naloxone HCl (Narcan) 0.1 mg IVPUSH Q5M PRN PRN Reason: Oversedation Ondansetron HCl (Zofran) 4 mg IVPUSH Q6H PRN PRN Reason: Nausea/Vomiting Last Admin: 07/14/17 14:30 Dose: 4 mg Oxycodone/Acetaminophen (Percocet 325-5 Mg) 1 - 2 tab PO Q4H PRN PRN Reason: Pain Last Admin: 07/15/17 14:21 Dose: 2 tab Pantoprazole Sodium (Protonix) 40 mg PO DAILY@0700 [facility] Last Admin: 07/15/17 06:38 Dose: 40 mg Azelastine/Fluticasone [Dymista Nasal [place]] 0 each NASBOTH DAILY PRN PRN Reason: as directed Patient's Own (Insulin Pump Omnipod) 0 each .XX ASDIRECTED PRN PRN Reason: Hyperglycemia Rivaroxaban (Xarelto) 10 mg PO DAILY [facility] Last Admin: 07/15/17 08:49 Dose: 10 mg Senna (Senna) 8.6 mg PO BID PRN PRN Reason: Constipation Sodium Chloride (Saline Flush) 10 ml FLUSH ASDIRECTED PRN PRN Reason: Keep Vein Open Temazepam (Restoril) 30 mg PO BEDTIME PRN PRN Reason: Insomnia Discontinued Medications Aspirin (Ecotrin) 325 mg PO BID [facility] Bupivacaine HCl (Marcaine 0.25%) Confirm Administered Dose 30 ml .ROUTE .STK- MED ONE Stop: 07/14/17 06:20 Last Admin: 07/14/17 08:48 Dose: 30 ml Cefazolin Sodium (Ancef) Confirm Administered Dose 2 gm .ROUTE .STK-MED ONE Stop: 07/14/17 06:35 Cefazolin Sodium (Ancef) Confirm Administered Dose 2 gm .ROUTE .STK-MED ONE Stop: 07/14/17 06:20 Clindamycin Phosphate (Cleocin) Confirm Administered Dose 900 mg .ROUTE .STK- MED ONE Stop: 07/14/17 06:33 Last Admin: 07/14/17 08:44 Dose: 900 mg Morphine Sulfate 8 mg/Epinephrine HCl 0.3 mg/Ketorolac Tromethamine 30 mg/ Sodium Chloride 27.9 ml 0 mg .XX ONETIME ONE Stop: 07/14/17 06:37 Last Admin: 07/14/17 08:48 Dose: 38.3 mg Diphenhydramine HCl (Benadryl) 25 mg IVPUSH Q4H PRN PRN Reason: Nausea Diphenhydramine HCl (Benadryl) 25 mg IVPUSH Q6H PRN PRN Reason: Pruritis Stop: 07/14/17 18:00 Famotidine (Pepcid) 20 mg PO Q12H [facility] Fentanyl (Sublimaze) Confirm Administered Dose 100 mcg .ROUTE .STK-MED ONE Stop: 07/14/17 06:31 Fentanyl (Sublimaze) 50 mcg IVPUSH Q5M PRN PRN Reason: Pain Stop: 07/14/17 18:00 Lactated Ringer's (Ringers, Lactated) 1,000 mls @ 125 mls/hr IV ASDIRECTED [facility] Last Admin: 07/14/17 07:05 Dose: 125 mls/hr Clindamycin Phosphate 600 mg/ (Sodium Chloride) 104 mls @ 100 mls/hr IV Q6H [facility] Stop: 07/15/17 13:31 Last Admin: 07/15/17 12:54 Dose: 100 mls/hr Clindamycin Phosphate 900 mg/ (Sodium Chloride) 106 mls @ 100 mls/hr IV ONETIME [facility] Stop: 07/14/17 11:30 Last Admin: 07/14/17 07:15 Dose: 100 mls/hr Lactated Ringer's (Ringers, Lactated) Confirm Administered Dose 1,000 mls @ as directed .ROUTE .STK-MED ONE Stop: 07/14/17 07:55 Iodine (Iodine 2% Mild Tincture) Confirm Administered Dose 30 ml .ROUTE .STK- MED ONE Stop: 07/14/17 06:20 Lidocaine/Sodium Bicarbonate (Buffered Lidocaine 1% In Ns 8.4%) 0.25 ml IV ONETIME PRN PRN Reason: Prior to IV Start Last Admin: 07/14/17 07:05 Dose: 0.25 ml Medroxyprogesterone Acetate (Depo-Provera) mg IM ASDIRECTED [facility] Meperidine HCl (Demerol) 12.5 mg IVPUSH ONETIME PRN PRN Reason: Shivering Stop: 07/14/17 18:00 Midazolam HCl (Versed 1 Mg/Ml) Confirm Administered Dose 2 mg .ROUTE .STK-MED ONE Stop: 07/14/17 06:31 Morphine Sulfate (Duramorph Pf) Confirm Administered Dose 1 mg .ROUTE .STK-MED ONE Stop: 07/14/17 06:22 Ondansetron HCl (Zofran) 4 mg IVPUSH ONETIME PRN PRN Reason: Nausea/Vomiting Stop: 07/14/17 18:00 Propofol (Diprivan 20 Ml) Confirm Administered Dose 600 mg .ROUTE .STK-MED ONE Stop: 07/14/17 06:31 Propofol (Diprivan 20 Ml) Confirm Administered Dose 200 mg .ROUTE .STK-MED ONE Stop: 07/14/17 09:03 Tranexamic Acid (Cyklokapron) Confirm Administered Dose 1,000 mg .ROUTE .STK- MED ONE Stop: 07/14/17 06:20 Last Admin: 07/14/17 08:54 Dose: 1,000 mg Valacyclovir HCl (Valtrex) 500 mg PO DAILY PRN PRN Reason: cold sores Vancomycin HCl (Vancomycin) Confirm Administered Dose 1 gm .ROUTE .STK-MED ONE Stop: 07/14/17 06:20 Last Admin: 07/14/17 08:53 Dose: 1 gm - Exam Wound/Incisions: Dressing Dry and Intact General: Alert, Cooperative, No Acute Distress Lungs: Normal Respiratory Effort Extremities: Other (NVS intact. Fercho's negative. ) - Problem List Review Problem List Initiated/Reviewed/Updated: Yes - My Orders Last 24 Hours: Active Orders 24 hr Category Date Time Status POC Glucose [Blood Glucose Check, Bedside] [RC] Care 07/14/17 19:12 Active QIDACANDBED Ready for Discharge [RC] PER UNIT ROUTINE Care 07/15/17 10:44 Active Calcium Carbonate Med 07/15/17 09:00 Active 600 mg PO DAILY DULoxetine [Cymbalta] Med 07/15/17 09:00 Active 60 mg PO DAILY Dextrose 50% in Water Med 07/14/17 18:59 Active 50 ml IVPUSH ASDIRECTED PRN Docusate Sodium [Colace] Med 07/14/17 21:00 Active 100 mg PO BID Insulin Detemir [Levemir] Med 07/14/17 21:00 Active 16 unit SUBCUT BID PRN Multivitamins,Therapeutic [Thera] Med 07/15/17 09:00 Active 1 each PO DAILY Pantoprazole [ProTONIX] Med 07/15/17 07:00 Active 40 mg PO DAILY@0700 Rivaroxaban [Xarelto] Med 07/15/17 09:00 Active 10 mg PO DAILY Temazepam [Restoril] Med 07/14/17 21:00 Active 30 mg PO BEDTIME PRN buPROPion [Wellbutrin XL] Med 07/15/17 09:00 Active 300 mg PO DAILY diphenhydrAMINE [Benadryl] Med 07/14/17 20:09 Active 25 mg IVPUSH Q4H PRN Medication Orders Albuterol (Proventil Hfa) 0 gm INH Q4H PRN PRN Reason: Shortness of Breath Bisacodyl (Dulcolax) 5 mg PO DAILY PRN PRN Reason: Constipation Bupropion HCl (Wellbutrin Xl) 300 mg PO DAILY [facility] Last Admin: 07/15/17 08:49 Dose: 300 mg Calcium Carbonate/Glycine (Calcium Carbonate) 600 mg PO DAILY [facility] Last Admin: 07/15/17 08:49 Dose: 600 mg Cyanocobalamin (Vitamin B12) 1,000 mcg PO DAILY PRN PRN Reason: as directed Cyclobenzaprine HCl (Flexeril) 10 mg PO TID PRN PRN Reason: Spasms Last Admin: 07/15/17 11:28 Dose: 10 mg Dextrose/Water (Dextrose 50% In Water) 50 ml IVPUSH ASDIRECTED PRN PRN Reason: Hypoglycemia Diphenhydramine HCl (Benadryl) 25 mg IVPUSH Q4H PRN PRN Reason: Itching Last Admin: 07/14/17 20:28 Dose: 25 mg Docusate Sodium (Colace) 100 mg PO BID [facility] Last Admin: 07/15/17 08:49 Dose: 100 mg Admin: 07/14/17 20:29 Dose: 100 mg Duloxetine HCl (Cymbalta) 60 mg PO DAILY [facility] Last Admin: 07/15/17 08:48 Dose: 60 mg Epinephrine HCl (Epipen) 0.3 mg IM ONETIME PRN PRN Reason: anaphylaxis Insulin Detemir (Levemir) 16 unit SUBCUT BID PRN PRN Reason: if insulin pump fails Ketorolac Tromethamine (Toradol) 15 mg IVPUSH Q6H PRN PRN Reason: Pain Last Admin: 07/15/17 11:14 Dose: 15 mg Admin: 07/15/17 04:14 Dose: 15 mg Lorazepam (Ativan) 1 mg PO TID PRN PRN Reason: Anxiety Magnesium Hydroxide (Milk Of Magnesia) 30 ml PO BID PRN PRN Reason: Constipation Mometasone Furoate/Formoterol Fumar (Dulera 100-5 Mcg) 2 puff IH BID PRN PRN Reason: Shortness of Breath Morphine Sulfate (Morphine) 2 mg IVPUSH Q2H PRN PRN Reason: Breakthrough Pain Multivitamins (Thera) 1 each PO DAILY [facility] Last Admin: 07/15/17 08:49 Dose: 1 each Naloxone HCl (Narcan) 0.1 mg IVPUSH Q5M PRN PRN Reason: Oversedation Ondansetron HCl (Zofran) 4 mg IVPUSH Q6H PRN PRN Reason: Nausea/Vomiting Last Admin: 07/14/17 14:30 Dose: 4 mg Oxycodone/Acetaminophen (Percocet 325-5 Mg) 1 - 2 tab PO Q4H PRN PRN Reason: Pain Last Admin: 07/15/17 14:21 Dose: 2 tab Admin: 07/15/17 08:19 Dose: 2 tab Admin: 07/15/17 01:15 Dose: 2 tab Pantoprazole Sodium (Protonix) 40 mg PO DAILY@0700 [facility] Last Admin: 07/15/17 06:38 Dose: 40 mg Azelastine/Fluticasone [Dymista Nasal [place]] 0 each NASBOTH DAILY PRN PRN Reason: as directed Patient's Own (Insulin Pump Omnipod) 0 each .XX ASDIRECTED PRN PRN Reason: Hyperglycemia Rivaroxaban (Xarelto) 10 mg PO DAILY [facility] Last Admin: 07/15/17 08:49 Dose: 10 mg Senna (Senna) 8.6 mg PO BID PRN PRN Reason: Constipation Sodium Chloride (Saline Flush) 10 ml FLUSH ASDIRECTED PRN PRN Reason: Keep Vein Open Temazepam (Restoril) 30 mg PO BEDTIME PRN PRN Reason: Insomnia - Assessment Assessment (Free Text/Narrative):: POD#1 - left TKA - Plan Plan (Free Text/Narrative):: 1. Hgb 11.9. 2. Close monitoring of blood sugars. Medical management per Hospitalist service. 3. Xarelto, SCDs, TEDs. 4. Discharge to home today if in-patient therapy goals met. The pt's case was discussed with Dr. Hernandes.
--- NOTE | 2017-07-20 23:13 | PCM.OPNOTE ---
- General Post-Op/Procedure Note Date of Surgery/Procedure: 07/14/17 Operative Procedure(s): left total knee arthroplasty Pre Op Diagnosis: left knee osteoarthrosis Post-Op Diagnosis: Same Anesthesia Technique: Local, MAC, Spinal Primary Surgeon: Kar Hernandes Anesthesia Provider: Elie Becker Crowd Controller: Sheridan Buckley Crowd Controller: Katherin Heredia in mLs: 10 Complications: None Condition: Good
--- NOTE | 2017-07-20 23:51 | OR ---
DATE OF OPERATION: 07/14/2017 SURGEON: Kar Hernandes MD OPERATION PERFORMED: Left total knee arthroplasty. PREOPERATIVE DIAGNOSIS: Left knee osteoarthrosis. POSTOPERATIVE DIAGNOSIS: Left knee osteoarthrosis. ANESTHESIA: Local MAC with spinal. ANESTHESIA PROVIDER: Elie Becker. ASSISTANTS: Sheridan Buckley PA-C and Katherin Heredia LPN. ESTIMATED BLOOD LOSS: 10 mL. COMPLICATIONS: None. CONDITION: Stable. IMPLANTS: 1. Ranjit size 3 PS femur. 2. Ranjit size 2 universal tibial base plate cemented. 3. Ranjit size 2, 9 mm PS X3 polyethylene. 4. Ariel size 27 x 8 mm symmetric patella. DESCRIPTION OF PROCEDURE: The patient was identified in the preop holding area. Proper site was marked and identified by the surgeon. The patient was taken back to the operating theater. After adequate anesthesia, the patient's left lower extremity had a nonsterile tourniquet applied and it was then sterilely prepped and draped in the usual sterile fashion. OR timeout was performed. The patient received clindamycin. At this time, left lower extremity was exsanguinated. Tourniquet was insufflated to 300 mmHg. Standard medial parapatellar incision was made. Medial parapatellar arthrotomy was created. Deep fibers of the MCL were raised and anterior fat pad was resected. At this time, attention was turned to the patella. Patella measured 18 and was resected to a 13 for a 27 x 8 mm patella. Drill holes were then drilled and found to be in adequate position. The drill was then drilled in the distal femur and the intramedullary distal femoral cutting guide was then placed. Next, a 10 mm was resected off the distal femur and was found to be an adequate resection. Sizing guide was placed. It was found to be a size 3 PS femur that was shown on the implant record at the beginning of this dictation. The drill holes were drilled for the epicondylar axis using Whites[place] line and epicondyles as reference. At this time, the 4-in- 1 cutting block was placed. An anterior posterior and anterior and posterior chamfer cuts were then completed. The correct size box cut was then placed and the box cut was completed and found to be an adequate resection. Attention was turned to the tibia. The posterior medial lateral retractors were placed. The extramedullary tibial guide was placed. It was placed in the old footprint of the ACL. It was aligned with the center of the ankle and 0 degrees of slope, 9 mm was then resected off the unaffected lateral side. There was found to be an acceptable reduction. At this time, posterior osteophytes were removed along with medial and lateral meniscus. A trial implant was placed with a correct sized tibia that was mentioned at the beginning of the dictation. A size 2, 9 mm PS X3 polyethylene was then placed. The patient's knee was brought through range of motion. The patella was tracking centrally and was stable to varus and valgus stress. Alignment was found to be roughly at 0 degrees. At this time, cement was mixed on the back table. The tibia was stamped and drilled in proper rotation. All cut surfaces were irrigated with pulse lavage irrigation with Ancef and then completely dried. Once this was completed, then the cement was ready. The universal tibial base plate was cemented in place. Next, the size 3 PS femur cemented into place and the size 2, 9 mm PS X3 polyethylene was placed. The patient's knee was brought into full extension. Excess cement was removed. The patella was then cemented in place at this time. Tourniquet was deflated. One liter dilute Betadine solution was irrigated through the knee along with 3 L of pulse lavage irrigation with Ancef. Periarticular injection was then completed. The patient's knee was brought through a range of motion. Once the cement had time to set up and it was found to be stable to varus valgus stress, the patella was tracking centrally with full range of motion. At this time, a #2 barbed suture was used for closure of the medial parapatellar arthrotomy. Topical tranexamic acid was placed. 2-0 Vicryl was used subcutaneously, a running 3-0 Monocryl was used subcuticularly. The patient tolerated the procedure well and was sent to the PACU in stable condition. AZALEA /[id number]
--- NOTE | 2017-07-21 06:37 | PCM.DCSUM1 ---
Discharge Summary - Hospital Course Brief History: Grisel is a 36 yo female who underwent left TKA with Dr. Hernandes on 07-14-2017. The procedure was completed under spinal anesthesia. The pt tolerated the procedure well and was admitted to the Medical-Surgical Unit. She participated in P.T. and O.T. and progressed well. She was allowed to WBAT and used a FWW for mobility. The pt's surgical wound was dressed with a Mepilex dressing and remained clean and dry. On POD#1, the pt was started on Xarelto 10mg PO daily for VTE prophylaxis. The pt used TEDs and SCDs also. On POD#1, the pt's hemoglobin was 11.9. Medial management was provided by the Hospitalist service and the pt's hospital course was uneventful. Her blood sugars were closely monitored. On POD#2, the pt was deemed appropriate for discharge to home. - Discharge Data Discharge Date: 07/15/17 Discharge Disposition: Home, Self-Care 01 Condition: Good - Patient Summary/Data Operative Procedure(s) Performed: left total knee arthroplasty Consults: Consultations 07/14/17 06:42 Consult to Physician [CONS] Routine OT Evaluation and Treatment [CONS] Routine 07/14/17 06:46 PT Evaluation and Treatment [CONS] Routine - Patient Instructions Diet: Usual Diet as Tolerated Activity: Apply Ice, As Tolerated, Elevate Extremity, Full Weight Bearing Driving: Do Not Drive Showering/Bathing: May Shower Wound/Incision Care: Keep Operative Site/Wound Site Clean and Dry, Do NOT Change Dressing Notify Provider of: Fever, Increased Pain, Swelling and Redness, Drainage, Nausea and/or Vomiting Other/Special Instructions: Please get up and moving around every hour while awake. This helps to prevent blood clots. Please use your walker and have help as needed. Please use the Xarelto blood thinner medication daily. This also helps to prevent blood clots. Complete the therapy exercises you were taught in the Hospital. Schedule for P.T. Use the pain medication as needed. The medication may cause drowsiness and constipation. Contact your primary care provider for instructions if you are constipated. You may use a stool softener like docusate sodium or Colace 100mg twice daily and/or a laxative like Miralax daily for constipation. Use the ice machine often. Elevate the limb to decrease swelling. Keep the Mepilex dressing in place until follow-up at the Clinic. Notify the Clinic if the dressing is saturated. Wear the KIZZY hose during the day and you may remove these at night. Eat a diet high in protein as this well help with healing. Schedule an appointment with your primary care provider for 'routine post-op care'. Call the Clinic with questions or concerns - [phone]. PLEASE closely monitor your blood sugars and contact your primary care provider with your values. - Discharge Plan Prescriptions/Med Rec: Acetaminophen/oxyCODONE [Percocet 325-5 MG] 1 - 2 tab PO Q4H PRN #60 tablet PRN Reason: Pain Cyclobenzaprine [Flexeril] 10 mg PO TID PRN #40 tablet PRN Reason: Spasms Rivaroxaban [Xarelto] 10 mg PO DAILY #40 tablet Home Medications: Home Meds Albuterol Sulfate [Albuterol Sulfate HFA] 2 puff INH Q4H PRN 01/23/15 [History] Cyanocobalamin (Vitamin B-12) [B-12] 1,000 mcg PO DAILY PRN 01/23/15 [History] DULoxetine [Cymbalta] 60 mg PO DAILY 01/23/15 [History] Fluticasone/Salmeterol [Advair 100-50] 1 puff INH BID PRN 01/23/15 [History] Insulin Aspart [NovoLOG] 1 dose SQ ASDIRECTED PRN 01/23/15 [History] Omeprazole 40 mg PO DAILY 01/23/15 [History] medroxyPROGESTERone Acetate [Depo-Provera] 1 dose IM ASDIRECTED 01/23/15 [ History] valACYclovir HCl [Valtrex] 500 mg PO DAILY PRN 01/23/15 [History] Azelastine/Fluticasone [Dymista Nasal [place]] 1 spray NASBOTH DAILY PRN 07/13/17 [History] Calcium Carbonate [Calcium] 600 mg PO DAILY 07/13/17 [History] EPINEPHrine [Epipen] 1 dose IM ONETIME PRN 07/13/17 [History] Insulin Glargine,Hum.Rec.Anlog [Lantus Solostar] 33 units SQ BEDTIME PRN [History] LORazepam [Ativan] 1 mg PO TID PRN 07/13/17 [History] Multivitamin [Poly-Vitamin] 1 tab PO DAILY 07/13/17 [History] Temazepam 30 mg PO BEDTIME PRN 07/13/17 [History] buPROPion HCl [Wellbutrin Xl] 300 mg PO DAILY 07/13/17 [History] Acetaminophen/oxyCODONE [Percocet 325-5 MG] 1 - 2 tab PO Q4H PRN #60 tablet [Rx] Bisacodyl [Dulcolax] 5 mg PO DAILY PRN tablet 07/15/17 [Rx] Cyclobenzaprine [Flexeril] 10 mg PO TID PRN #40 tablet 07/15/17 [Rx] Docusate Sodium [Colace] 100 mg PO BID cap 07/15/17 [Rx] Magnesium Hydroxide [Milk of Magnesia] 30 ml PO BID PRN cup 07/15/17 [Rx] Rivaroxaban [Xarelto] 10 mg PO DAILY #40 tablet 07/15/17 [Rx] Sennosides [Senna] 8.6 mg PO BID PRN tablet 07/15/17 [Rx] Patient Handouts: Total Knee Replacement, Care After, [id number], Total Knee Replacement, [id number], Knee Rehabilitation Guidelines Following Surgery Referrals: Sheridan Buckley PA-C [Physician Account Strategist] - 07/20/17 3:00 pm (Next appt after this one is on 07/27/17 at 11:15 am.) - Patient Data Vitals - Most Recent: Last Vital Signs Temp 98.4 F 07/15/17 14:27 Pulse 89 07/15/17 14:27 Resp 18 07/15/17 14:27 BP 126/76 07/15/17 14:27 Pulse Ox 99 07/15/17 14:27 Weight - Most Recent: 207 lb 14.4 oz Med Orders - Current: Current Medications Discontinued Medications Albuterol (Proventil Hfa) 0 gm INH Q4H PRN PRN Reason: Shortness of Breath Aspirin (Ecotrin) 325 mg PO BID [facility]ISELA Bisacodyl (Dulcolax) 5 mg PO DAILY PRN PRN Reason: Constipation Bupivacaine HCl (Marcaine 0.25%) Confirm Administered Dose 30 ml .ROUTE .STK- MED ONE Stop: 07/14/17 06:20 Last Admin: 07/14/17 08:48 Dose: 30 ml Bupropion HCl (Wellbutrin Xl) 300 mg PO DAILY [facility] Last Admin: 07/15/17 08:49 Dose: 300 mg Calcium Carbonate/Glycine (Calcium Carbonate) 600 mg PO DAILY [facility] Last Admin: 07/15/17 08:49 Dose: 600 mg Cefazolin Sodium (Ancef) Confirm Administered Dose 2 gm .ROUTE .STK-MED ONE Stop: 07/14/17 06:35 Cefazolin Sodium (Ancef) Confirm Administered Dose 2 gm .ROUTE .STK-MED ONE Stop: 07/14/17 06:20 Clindamycin Phosphate (Cleocin) Confirm Administered Dose 900 mg .ROUTE .STK- MED ONE Stop: 07/14/17 06:33 Last Admin: 07/14/17 08:44 Dose: 900 mg Morphine Sulfate 8 mg/Epinephrine HCl 0.3 mg/Ketorolac Tromethamine 30 mg/ Sodium Chloride 27.9 ml 0 mg .XX ONETIME ONE Stop: 07/14/17 06:37 Last Admin: 07/14/17 08:48 Dose: 38.3 mg Cyanocobalamin (Vitamin B12) 1,000 mcg PO DAILY PRN PRN Reason: as directed Cyclobenzaprine HCl (Flexeril) 10 mg PO TID PRN PRN Reason: Spasms Last Admin: 07/15/17 11:28 Dose: 10 mg Dextrose/Water (Dextrose 50% In Water) 50 ml IVPUSH ASDIRECTED PRN PRN Reason: Hypoglycemia Diphenhydramine HCl (Benadryl) 25 mg IVPUSH Q4H PRN PRN Reason: Nausea Diphenhydramine HCl (Benadryl) 25 mg IVPUSH Q6H PRN PRN Reason: Pruritis Stop: 07/14/17 18:00 Diphenhydramine HCl (Benadryl) 25 mg IVPUSH Q4H PRN PRN Reason: Itching Last Admin: 07/14/17 20:28 Dose: 25 mg Docusate Sodium (Colace) 100 mg PO BID [facility] Last Admin: 07/15/17 08:49 Dose: 100 mg Duloxetine HCl (Cymbalta) 60 mg PO DAILY [facility] Last Admin: 07/15/17 08:48 Dose: 60 mg Epinephrine HCl (Epipen) 0.3 mg IM ONETIME PRN PRN Reason: anaphylaxis Famotidine (Pepcid) 20 mg PO Q12H [facility] Fentanyl (Sublimaze) Confirm Administered Dose 100 mcg .ROUTE .STK-MED ONE Stop: 07/14/17 06:31 Fentanyl (Sublimaze) 50 mcg IVPUSH Q5M PRN PRN Reason: Pain Stop: 07/14/17 18:00 Lactated Ringer's (Ringers, Lactated) 1,000 mls @ 125 mls/hr IV ASDIRECTED [facility] Last Admin: 07/14/17 07:05 Dose: 125 mls/hr Clindamycin Phosphate 600 mg/ (Sodium Chloride) 104 mls @ 100 mls/hr IV Q6H [facility] Stop: 07/15/17 13:31 Last Admin: 07/15/17 12:54 Dose: 100 mls/hr Clindamycin Phosphate 900 mg/ (Sodium Chloride) 106 mls @ 100 mls/hr IV ONETIME [facility] Stop: 07/14/17 11:30 Last Admin: 07/14/17 07:15 Dose: 100 mls/hr Lactated Ringer's (Ringers, Lactated) Confirm Administered Dose 1,000 mls @ as directed .ROUTE .STK-MED ONE Stop: 07/14/17 07:55 Insulin Detemir (Levemir) 16 unit SUBCUT BID PRN PRN Reason: if insulin pump fails Iodine (Iodine 2% Mild Tincture) Confirm Administered Dose 30 ml .ROUTE .STK- MED ONE Stop: 07/14/17 06:20 Ketorolac Tromethamine (Toradol) 15 mg IVPUSH Q6H PRN PRN Reason: Pain Last Admin: 07/15/17 11:14 Dose: 15 mg Lidocaine/Sodium Bicarbonate (Buffered Lidocaine 1% In Ns 8.4%) 0.25 ml IV ONETIME PRN PRN Reason: Prior to IV Start Last Admin: 07/14/17 07:05 Dose: 0.25 ml Lorazepam (Ativan) 1 mg PO TID PRN PRN Reason: Anxiety Magnesium Hydroxide (Milk Of Magnesia) 30 ml PO BID PRN PRN Reason: Constipation Medroxyprogesterone Acetate (Depo-Provera) mg IM ASDIRECTED [facility] Meperidine HCl (Demerol) 12.5 mg IVPUSH ONETIME PRN PRN Reason: Shivering Stop: 07/14/17 18:00 Midazolam HCl (Versed 1 Mg/Ml) Confirm Administered Dose 2 mg .ROUTE .STK-MED ONE Stop: 07/14/17 06:31 Mometasone Furoate/Formoterol Fumar (Dulera 100-5 Mcg) 2 puff IH BID PRN PRN Reason: Shortness of Breath Morphine Sulfate (Duramorph Pf) Confirm Administered Dose 1 mg .ROUTE .STK-MED ONE Stop: 07/14/17 06:22 Morphine Sulfate (Morphine) 2 mg IVPUSH Q2H PRN PRN Reason: Breakthrough Pain Multivitamins (Thera) 1 each PO DAILY [facility] Last Admin: 07/15/17 08:49 Dose: 1 each Naloxone HCl (Narcan) 0.1 mg IVPUSH Q5M PRN PRN Reason: Oversedation Ondansetron HCl (Zofran) 4 mg IVPUSH Q6H PRN PRN Reason: Nausea/Vomiting Last Admin: 07/14/17 14:30 Dose: 4 mg Ondansetron HCl (Zofran) 4 mg IVPUSH ONETIME PRN PRN Reason: Nausea/Vomiting Stop: 07/14/17 18:00 Oxycodone/Acetaminophen (Percocet 325-5 Mg) 1 - 2 tab PO Q4H PRN PRN Reason: Pain Last Admin: 07/15/17 14:21 Dose: 2 tab Pantoprazole Sodium (Protonix) 40 mg PO DAILY@0700 [facility] Last Admin: 07/15/17 06:38 Dose: 40 mg Azelastine/Fluticasone [Dymista Nasal [place]] 0 each NASBOTH DAILY PRN PRN Reason: as directed Patient's Own (Insulin Pump Omnipod) 0 each .XX ASDIRECTED PRN PRN Reason: Hyperglycemia Propofol (Diprivan 20 Ml) Confirm Administered Dose 600 mg .ROUTE .STK-MED ONE Stop: 07/14/17 06:31 Propofol (Diprivan 20 Ml) Confirm Administered Dose 200 mg .ROUTE .STK-MED ONE Stop: 07/14/17 09:03 Rivaroxaban (Xarelto) 10 mg PO DAILY [facility] Last Admin: 07/15/17 08:49 Dose: 10 mg Senna (Senna) 8.6 mg PO BID PRN PRN Reason: Constipation Sodium Chloride (Saline Flush) 10 ml FLUSH ASDIRECTED PRN PRN Reason: Keep Vein Open Temazepam (Restoril) 30 mg PO BEDTIME PRN PRN Reason: Insomnia Tranexamic Acid (Cyklokapron) Confirm Administered Dose 1,000 mg .ROUTE .Cleo ONE Stop: 07/14/17 06:20 Last Admin: 07/14/17 08:54 Dose: 1,000 mg Valacyclovir HCl (Valtrex) 500 mg PO DAILY PRN PRN Reason: cold sores Vancomycin HCl (Vancomycin) Confirm Administered Dose 1 gm .ROUTE .[place] ONE Stop: 07/14/17 06:20 Last Admin: 07/14/17 08:53 Dose: 1 gm *Q Meaningful Use (DIS) - VTE *Q VTE Criteria *Q: - Stroke *Q Stroke Criteria *Q: - AMI *Q AMI Criteria *Q:
== END 2017-07-15 16:55 | disposition home or self-care (01) | DRG 470 ==
LOC: JD.MS 07-14 06:05
PROVIDERS: ADMIT Orthopaedic Surgery; ATTEND Orthopaedic Surgery
PROC: 0SRD0J9 Replacement of Left Knee Joint with Synthetic Substitute, Cemented, Open Approach (ICD-10-PCS; principal; 2017-07-14)
DX: M17.12 Unilateral primary osteoarthritis, left knee (principal); E66.9 Obesity, unspecified; Z68.34 Body mass index [BMI] 34.0-34.9, adult; J45.909 Unspecified asthma, uncomplicated; H54.7 Unspecified visual loss; G47.30 Sleep apnea, unspecified; K21.9 Gastro-esophageal reflux disease without esophagitis; M79.7 Fibromyalgia; F41.9 Anxiety disorder, unspecified; F32.9 Major depressive disorder, single episode, unspecified; E10.9 Type 1 diabetes mellitus without complications; Z79.4 Long term (current) use of insulin; E53.8 Deficiency of other specified B group vitamins; Z79.899 Other long term (current) drug therapy; Z88.0 Allergy status to penicillin; Z88.1 Allergy status to other antibiotic agents; Z91.013 Allergy to seafood; Z91.048 Other nonmedicinal substance allergy status
CPT/HCPCS: 01402; 36415; 73560-26-LT; 73560-LT; 80053; 81025; 82962; 85027; 87641; 94762; 97110-GP; 97116-GP; 97162-GP; 97165-GO; 97535-GO; A9270-GY; C1713; C1776; J0171; J0690; J1200; J1885; J2250; J2270; J2274; J2405; J2704; J3010; J3370; J3490; J7030; J7120

== ENCOUNTER 2018-10-30 08:52 | Emergency (ER) | payer OTHER ==
[2018-10-30 09:15] VITALS: BP 128/91
[2018-10-30] MEDS ORDERED: Sodium Chloride 0.9% 10 ML Syringe FLUSH PRN (09:42)
[2018-10-30] MEDS ORDERED: Sodium Chloride 0.9% 1,000 ML IV SCH (09:45)
--- NOTE | 2018-10-30 10:40 | EDM.PDOCBH ---
ED HPI GENERAL MEDICAL PROBLEM - General Chief Complaint: Behavioral/Psych Stated Complaint: OVERDOSE ON SLEEPING PILLS Time Seen by Provider: 10/30/18 09:28 Source of Information: Reports: Patient, RN Notes Reviewed - History of Present Illness INITIAL COMMENTS - FREE TEXT/NARRATIVE: 38-year-old female has presented to the ED by private vehicle with history of what she describes as "medication overdose" having taken 10-12 temazepam tablets last evening. This morning she states she still does feel "suicidal". She states she has thought about buying a gun in the past presumably with the intention of shooting herself. However she did not feel or know it was possible to buy a gun in [place] without special arrangements. She has been informed that it would be possible for her to buy a gun and that is is in her head now that she would go ahead and do that, take her life because she does not want to live. She states she has been depressed for many years. She does not have a counselor here in the [facility]. She has been on antidepressant medication in the past but has been off for many months. She also is insulin- dependent diabetic, has an insulin pump. She states she does drink at least occasional alcohol. Denies overdosing on any other type of medication last evening. Knee Pain Score (Numeric/FACES): 4 - Related Data Allergies Allergy/AdvReac Type Severity Reaction Status Date / Time amoxicillin Allergy Facial Verified 10/30/18 09:11 Swelling cat dander Allergy Cannot Verified 10/30/18 09:11 Remember metformin Allergy Cannot Verified 10/30/18 09:11 Remember Penicillins Allergy Cannot Verified 10/30/18 09:11 Remember shellfish derived Allergy Swelling Verified 10/30/18 09:11 metal Allergy Cannot Uncoded 10/30/18 09:11 Remember Home Meds: Home Meds Cyanocobalamin (Vitamin B-12) [B-12] 1,000 mcg PO DAILY PRN 01/23/15 [History] DULoxetine [Cymbalta] 60 mg PO DAILY 01/23/15 [History] Insulin Aspart [NovoLOG] 1 dose SQ ASDIRECTED PRN 01/23/15 [History] valACYclovir HCl [Valtrex] 500 mg PO DAILY 01/23/15 [History] Azelastine/Fluticasone [Dymista Nasal [place]] 1 spray NASBOTH BID 07/13/17 [ History] EPINEPHrine [Epipen] 1 dose IM ONETIME PRN 07/13/17 [History] Insulin Glargine,Hum.Rec.Anlog [Lantus Solostar] 33 units SQ BEDTIME 07/13/17 [ History] LORazepam [Ativan] 1 mg PO QID PRN 07/13/17 [History] Multivitamin [Poly-Vitamin] 1 tab PO DAILY 07/13/17 [History] Temazepam 30 mg PO BEDTIME PRN 07/13/17 [History] DULoxetine [Cymbalta] 30 mg PO DAILY 10/30/18 [History] Mirtazapine 15 mg PO BEDTIME 10/30/18 [History] traMADol HCl [Tramadol HCl] 50 mg PO QID PRN 10/30/18 [History] Past Medical History HEENT History: Reports: Impaired Vision Other HEENT History: WEARS GLASSES Cardiovascular History: Reports: Other (See Below) Other Cardiovascular History: TACHYCARDIA Respiratory History: Reports: Asthma, Sleep Apnea Other Respiratory History: REACTIVE AIRWAY DISEASE Gastrointestinal History: Reports: GERD, Helicobacter Pylori Other Gastrointestinal History: HX OF H.PYLORI INFECTION Genitourinary History: Reports: Other (See Below) Other Genitourinary History: menorrhaiga, labial cyst 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 SIMPLEX VIRUS, LABIAL CYST Musculoskeletal History: Reports: Fibromyalgia, Osteoarthritis Other Musculoskeletal History: leg pain, left ankle pain, left knee pain Neurological History: Reports: Migraines Psychiatric History: Reports: Anxiety, Depression Other Psychiatric History: INSOMNIA, fatigue Endocrine/Metabolic History: Reports: Diabetes, Type I, Obesity/BMI 30+, Other ( See Below) Other Endocrine/Metabolic History: vitamin b 12 deficiency Hematologic History: Reports: Other (See Below) Other Hematologic History: elevated CRP Immunologic History: Reports: None Oncologic (Cancer) History: Reports: None Other Dermatologic History: herpes simplex virus, skin tags, cyst excision from tailbone - Infectious Disease History Infectious Disease History: Reports: Herpes - Past Surgical History HEENT Surgical History: Reports: None Cardiovascular Surgical History: Reports: None Respiratory Surgical History: Reports: None GI Surgical History: Reports: Bariatric Procedure, EGD, Other (See Below) Other GI Surgeries/Procedures: gastric bypass sleeve procedure Female Surgical History: Reports: None Endocrine Surgical History: Reports: None Neurological Surgical History: Reports: None Musculoskeletal Surgical History: Reports: Other (See Below) Other Musculoskeletal Surgeries/Procedures:: BILATERAL CARPAL TUNNEL RELEASES, HX OF CYST EXCISION FROM TAILBONE, right foot hammertoe correction, trigger finger release on left Oncologic Surgical History: Reports: None Social & Family History - Caffeine Use Caffeine Use: Reports: Coffee, Tea ED ROS GENERAL - Review of Systems Review Of Systems: See Below Constitutional: Denies: Fever, Chills, Diaphoresis HEENT: Denies: Rhinitis, Throat Pain Respiratory: Denies: Shortness of Breath Cardiovascular: Denies: Chest Pain GI/Abdominal: Denies: Abdominal Pain, Nausea, Vomiting Musculoskeletal: Reports: No Symptoms Skin: Reports: No Symptoms Neurological: Reports: Dizziness. Denies: Trouble Speaking ED EXAM, BEHAVIORAL HEALTH - Physical Exam Exam: See Below Exam Limited By: Uncooperative General Appearance: Moderate Distress Eye Exam: Bilateral Eye: PERRL Throat/Mouth: Normal Inspection, Normal Oropharynx Head: Atraumatic Neck: Supple, Full Range of Motion Respiratory/Chest: No Respiratory Distress, Lungs Clear, Normal Breath Sounds. No: Rhonchi, Wheezing Cardiovascular: Regular Rate, Rhythm GI/Abdominal: Soft, Non-Tender Back Exam: No: CVA Tenderness (L), CVA Tenderness (R) Extremities: Normal Inspection, Normal Range of Motion. No: Pedal Edema Neurological: Alert, No Motor/Sensory Deficits Psychiatric: Alert, Flat Affect, Tearful, Suicidal Plan, Suicidal Thoughts Skin Exam: Warm, Dry, Normal color COURSE, BEHAVIORAL HEALTH COMP - Course Vital Signs: Last Vital Signs Temp 98.4 F 10/30/18 09:07 Pulse 92 10/30/18 09:07 Resp 16 10/30/18 09:07 BP 128/91 H 10/30/18 09:07 Pulse Ox 100 10/30/18 09:07 Orders, Labs, Meds: Active Orders 24 hr Category Date Time Status POC Glucose [Blood Glucose Check, Bedside] [] ONETIME Care 10/30/18 09:42 Active Peripheral IV Care [RC] . DIRECTED Care 10/30/18 09:43 Active Sodium Chloride 0.9% [Normal Saline] 1,000 ml Med 10/30/18 09:45 Active IV ONETIME Sodium Chloride 0.9% [Saline Flush] Med 10/30/18 09:42 Active 10 ml FLUSH ASDIRECTED PRN Peripheral IV Insertion Adult [OM.PC] Stat Oth 10/30/18 09:42 Ordered Medication Orders Sodium Chloride (Normal Saline) 1,000 mls @ 999 mls/hr IV ONETIME [facility] Last Admin: 10/30/18 09:53 Dose: 999 mls/hr Sodium Chloride (Saline Flush) 10 ml FLUSH ASDIRECTED PRN PRN Reason: Keep Vein Open Last Admin: 10/30/18 09:53 Dose: 10 ml Laboratory Tests 10/30/18 10/30/18 10/30/18 Range/Units 09:40 09:40 09:40 WBC 6.23 (3.98-10.04) K/mm3 RBC 4.59 (3.98-5.22) M/mm3 Hgb 12.2 (11.2-15.7) gm/L Hct 37.3 (34.1-44.9) % MCV 81.3 (79.4-94.8) fl MCH 26.6 (25.6-32.2) pg MCHC 32.7 (32.2-35.5) g/dl RDW Std Deviation 38.7 (36.4-46.3) fL Plt Count 281 (182-369) K/mm3 MPV 8.2 L (9.4-12.3) fl Neut % (Auto) 42.4 (34.0-71.1) % Lymph % (Auto) 46.9 (19.3-51.7) % [place] % (Auto) 8.2 (4.7-12.5) % Eos % (Auto) 2.1 (0.7-5.8) Baso % (Auto) 0.2 (0.1-1.2) % Neut # (Auto) 2.65 (1.56-6.13) K/mm3 Lymph # (Auto) 2.92 (1.18-3.74) K/mm3 [place] # (Auto) 0.51 H (0.24-0.36) K/mm3 Eos # (Auto) 0.13 (0.04-0.36) K/mm3 Baso # (Auto) 0.01 (0.01-0.08) K/mm3 Sodium 140 (136-145) mEq/L Potassium 3.6 (3.5-5.1) mEq/L Chloride 105 (98-107) mEq/L Carbon Dioxide 25 (21-32) mEq/L Anion Gap 13.6 (5-15) BUN 8 (7-18) mg/dL Creatinine 0.9 (0.55-1.02) mg/dL Est Cr Clr Drug Dosing 78.56 mL/min Estimated GFR (MDRD) > 60 (>60) mL/min BUN/Creatinine Ratio 8.9 L (14-18) Glucose 167 H (74-106) mg/dL POC Glucose (70-105) mg/dL Calcium 8.9 (8.5-10.1) mg/dL Total Bilirubin 0.5 (0.2-1.0) mg/dL AST 29 (15-37) U/L ALT 41 (14-59) U/L Alkaline Phosphatase 54 (46-116) U/L Total Protein 7.5 (6.4-8.2) g/dl Albumin 3.5 (3.4-5.0) g/dl Globulin 4.0 gm/dL Albumin/Globulin Ratio 0.9 L (1-2) Urine Opiates Screen (OUFUXT=221) Ur Buprenorphine Scrn (CUTOFF=10) Ur Oxycodone Screen (VVN1QU=348) Urine Methadone Screen (ACDLIG=840) Ur Propoxyphene Screen (FPYNGV=347) Acetaminophen 0 L (10-30) ug/mL Ur Barbiturates Screen (RBWQAG=592) Ur Tricyclics Screen (WDKZFD=056) Ur Phencyclidine Scrn (CUTOFF=25) Ur Amphetamine Screen (PIULAJ=373) U Methamphetamines Scrn (NOUBVE=682) U Benzodiazepines Scrn (DZSWTW=401) U Cocaine Metab Screen (FVNYSF=452) U Marijuana (THC) Screen (CUTOFF=50) Ethyl Alcohol 0.00 (0.00) gm% 10/30/18 10/30/18 10/30/18 Range/Units 09:46 10:52 13:27 WBC (3.98-10.04) K/mm3 RBC (3.98-5.22) M/mm3 Hgb (11.2-15.7) gm/L Hct (34.1-44.9) % MCV (79.4-94.8) fl MCH (25.6-32.2) pg MCHC (32.2-35.5) g/dl RDW Std Deviation (36.4-46.3) fL Plt Count (182-369) K/mm3 MPV (9.4-12.3) fl Neut % (Auto) (34.0-71.1) % Lymph % (Auto) (19.3-51.7) % [place] % (Auto) (4.7-12.5) % Eos % (Auto) (0.7-5.8) Baso % (Auto) (0.1-1.2) % Neut # (Auto) (1.56-6.13) K/mm3 Lymph # (Auto) (1.18-3.74) K/mm3 [place] # (Auto) (0.24-0.36) K/mm3 Eos # (Auto) (0.04-0.36) K/mm3 Baso # (Auto) (0.01-0.08) K/mm3 Sodium (136-145) mEq/L Potassium (3.5-5.1) mEq/L Chloride (98-107) mEq/L Carbon Dioxide (21-32) mEq/L Anion Gap (5-15) BUN (7-18) mg/dL Creatinine (0.55-1.02) mg/dL Est Cr Clr Drug Dosing mL/min Estimated GFR (MDRD) (>60) mL/min BUN/Creatinine Ratio (14-18) Glucose (74-106) mg/dL POC Glucose 159 H 139 H (70-105) mg/dL Calcium (8.5-10.1) mg/dL Total Bilirubin (0.2-1.0) mg/dL AST (15-37) U/L ALT (14-59) U/L Alkaline Phosphatase (46-116) U/L Total Protein (6.4-8.2) g/dl Albumin (3.4-5.0) g/dl Globulin gm/dL Albumin/Globulin Ratio (1-2) Urine Opiates Screen Negative (FXUSAV=444) Ur Buprenorphine Scrn Negative (CUTOFF=10) Ur Oxycodone Screen Negative (NNR6QL=844) Urine Methadone Screen Negative (ZLBYYW=250) Ur Propoxyphene Screen Negative (WVBFZA=190) Acetaminophen (10-30) ug/mL Ur Barbiturates Screen Negative (AORZWX=258) Ur Tricyclics Screen Negative (QJLJES=996) Ur Phencyclidine Scrn Negative (CUTOFF=25) Ur Amphetamine Screen Negative (TAYIDT=214) U Methamphetamines Scrn Negative (XDNCJY=545) U Benzodiazepines Scrn Presumptive positive H (KHSUDC=217) U Cocaine Metab Screen Negative (PHVWSK=686) U Marijuana (THC) Screen Negative (CUTOFF=50) Ethyl Alcohol (0.00) gm% Medications Generic Name Dose Route Start Last Admin Trade Name Freq PRN Reason Stop Dose Admin Sodium Chloride 1,000 mls @ 999 mls/hr 10/30/18 09:45 10/30/18 09:53 Normal Saline IV 999 mls/hr ONETIME MARISELA Administration Sodium Chloride 10 ml 10/30/18 09:42 10/30/18 09:53 Saline Flush FLUSH 10 ml ASDIRECTED PRN Administration Keep Vein Open Discontinued Medications Generic Name Dose Route Start Last Admin Trade Name Freq PRN Reason Stop Dose Admin Insulin Human Regular 4 unit 10/30/18 16:06 10/30/18 16:29 Humulin R SUBCUT 10/30/18 16:07 4 units ONETIME ONE Administration Protocol Re-Assessment/Re-Exam: 13:00. Lasted come back relatively normal. Elenita, one of our social workers has been looking into transfer options. [facility] are full. Tonia Navarroot noticeable and is also on diversion. 17:00. [facility]. However the [facility] department does not have staffing to get that done today. They do have a couple of deputies I will be available 7:30 tomorrow morning so the plan is to go at that time. 24-hour hold paperwork has been filled out. A she's been resting comfortably here in the ED. Sugars have not been running high. For units sliding scale insulin a short time ago. Last blood sugar was in the 130s. Departure - Departure Time of Disposition: 17:00 Disposition: DC/Tfer to Acute Hospital 02 Condition: Serious Clinical Impression: Depression with suicidal ideation - Discharge Information Referrals: Sarah Rowe NP [Primary Care Provider] - Forms: ED Department Discharge - My Orders Last 24 Hours: My Active Orders 10/30/18 09:42 POC Glucose [Blood Glucose Check, Bedside] [RC] ONETIME Sodium Chloride 0.9% [Saline Flush] 10 ml FLUSH ASDIRECTED PRN Peripheral IV Insertion Adult [OM.PC] Stat 10/30/18 09:43 Peripheral IV Care [RC] . DIRECTED 10/30/18 09:45 Sodium Chloride 0.9% [Normal Saline] 1,000 ml IV ONETIME - Assessment/Plan Last 24 Hours: My Active Orders 10/30/18 09:42 POC Glucose [Blood Glucose Check, Bedside] [RC] ONETIME Sodium Chloride 0.9% [Saline Flush] 10 ml FLUSH ASDIRECTED PRN Peripheral IV Insertion Adult [OM.PC] Stat 10/30/18 09:43 Peripheral IV Care [RC] . DIRECTED 10/30/18 09:45 Sodium Chloride 0.9% [Normal Saline] 1,000 ml IV ONETIME
[2018-10-30] MEDS ORDERED: Insulin Regular, Human 100 Units/ML 3 ML Vial SUBCUT ONE (16:06)
== END 2018-10-31 07:55 ==
LOC: JD.ED 08:52
DX: F32.9 Major depressive disorder, single episode, unspecified (principal); J45.909 Unspecified asthma, uncomplicated; F41.9 Anxiety disorder, unspecified; E10.9 Type 1 diabetes mellitus without complications; Z88.1 Allergy status to other antibiotic agents; Z88.8 Allergy status to other drugs, medicaments and biological substances; Z79.899 Other long term (current) drug therapy
CPT/HCPCS: 36415; 80053; 80306; 82962; 85025; 96360; 96372; 99285; G0480; J1815; J7040; 99284